=== PATIENT | male | born 1935 | race Caucasian/White ===

== ENCOUNTER 2017-06-12 10:36 | Observation (INO) | payer MEDICARE ==
[~2017-06-12] VITALS: Ht 177.8 cm; Wt 102.5 kg
[~2017-06-12 10:36] MED LIST: CLONIDINE HCL0.2 MG PO; CYMBALTA30 MG PO; HYDROCHLOROTH12.5 MG PO; METOPROLOL TART25 MG PO; OMEGA 3 FISH O1 EACH PO; QUINAPRIL HCL20 MG PO; SPECTRAVITE SE1 EACH PO; SUPER B-COMPL400 MCG PO; TAMSULOSIN HCL0.4 MG PO; TRAZODONE HCL50 MG PO; VITAMIN D1000 UNI1 PO
--- OUTSIDE RECORDS SUMMARY | 2017-06-12 10:39 | XMS REPORT ---
Author Author [facility] Address Unknown Phone Unavailable Care Team Providers Care Internal Control Specialist Name Role Phone ADONIS MURCIA Unavailable Unavailable Problems This patient has no known problems. Allergies, Adverse Reactions, Alerts This patient has no known allergies or adverse reactions. Medications This patient has no known medications. Results Test Description Test Time Test Comments Text Results Atomic Results Result Comments US RENAL RETROPERITONEAL COMP [place] [address] Patient Name: DENIZ RESENDIZ MR #: [id number] : 1935 Age/Sex: 81/M Req #: [id number] Adm Physician: Ordered by: ADONIS MURCIA MD Report #: [id number] Location: Room/Bed: Procedure: [id number] US/US RENAL RETROPERITONEAL COMP Exam Date: 03/08/17 Exam Time: 1440 REPORT STATUS: Signed PROCEDURE : US RETROPERITONEAL ( KIDNEY ). COMPARISON: None. INDICATIONS: Hematuria, Elevated Creatine TECHNIQUE: Gamino-scale and color sonographic images of the bilateral kidneys and bladder where obtained in transverse and longitudinal planes. FINDINGS: RIGHT KIDNEY: 13.3 cm, cortex 1.5 cm Cysts: None. Solid masses: None. Stones: None. Hydronephrosis: None. Echogenicity: Normal. LEFT KIDNEY: 14.8 cm, cortex 2 cm Cysts: 1.4 x 1.1 x 1.2 cm inferior pole cyst. Solid masses: None. Stones: None. Hydronephrosis: None. Echogenicity: Normal. Bladder: Unremarkable. Bilateral ureteral jets detected. Prostate: Within normal limits. CONCLUSION: Unremarkable renal ultrasound. No evidence of nephrolithiasis. Dictated by: Yg Brownlee M.D. on 03/08/2017 at 15 :43 Electronically approved by: Yg Brownlee M.D. on 03/08/2017 at 15: 43 Dictated By: YG BROWNLEE MD 1543 Transcribed By: RAÚL on 03/08/17 1543 COPY TO: ADONIS MURCIA MD
[2017-06-12] MEDS ORDERED: DIATRIZOATE MEGL/DIATRIZOA SOD 30 ML BTL PO ONE (11:44)
[2017-06-12 12:19] LABS: BASOPHILS # (AUTO) 0.1 (0.0-0.1); BASOPHILS % 0.4 % (0.0-1.0); EOSINOPHILS # (AUTO) 0.1 (0.0-0.4); EOSINOPHILS % 0.5 % (0.0-6.0); HEMATOCRIT 48.3 % (38.2-49.6); HEMOGLOBIN 16.9 g/dL (14.0-18.0); LYMPHOCYTES # (AUTO) 2.2 (1.0-3.2); LYMPHOCYTES % 16.3 % (18.0-39.1); MEAN CORPUSCULAR HEMOGLOBIN 31.5 pg (28-32); MEAN CORPUSCULAR VOLUME 89.9 fL (81-99); MONOCYTES % 7.2 % (4.4-11.3); NEUTROPHILS # (AUTO) 10.1 (2.1-6.9); NEUTROPHILS % 73.9 % (38.7-80.0); PLATELET COUNT 325 x10e3/uL (140-360); RED BLOOD COUNT 5.37 x10e6/uL (4.3-5.7); RED CELL DISTRIBUTION WIDTH 13.4 % (11.7-14.4)
[2017-06-12 12:32] LABS: ALBUMIN 3.9 g/dL (3.5-5.0); ALBUMIN/GLOBULIN RATIO 1.1 (0.8-2.0); ANION GAP 16.2 mmol/L (8-16); CALCIUM 9.8 mg/dL (8.4-10.2); POTASSIUM 3.2 mmol/L (3.5-5.1)
[2017-06-12 12:38] LABS: CREATINE KINASE MB 2.6 ng/mL (0-5.0)
--- NOTE | 2017-06-12 13:48 | Diagnostic Imaging Report ---
PROCEDURE: CT ABDOMEN AND PELVIS WITHOUT CONTRAST TECHNIQUE: The abdomen and pelvis were scanned utilizing a multidetector helical scanner from the diaphragm to the lesser trochanter after the oral administration of Gastroview. No intravenous contrast was administered per referring physician request. Coronal and sagittal multiplanar reformations were obtained. COMPARISON: None. INDICATIONS: VOMITING, ABD PAIN FINDINGS: ABSENCE OF INTRAVENOUS CONTRAST DECREASES SENSITIVITY FOR DETECTION OF FOCAL LESIONS AND VASCULAR PATHOLOGY. LOWER THORAX: Multiple calcified pleural plaques along the anterior and diaphragmatic surfaces. Linear and reticular opacities in the bases likely reflect fibrotic changes. Atherosclerotic coronary artery calcifications. HEPATOBILIARY: No focal hepatic lesions. No biliary ductal dilatation. SPLEEN: No splenomegaly. PANCREAS: No focal masses or ductal dilatation. ADRENALS: No adrenal nodules. KIDNEYS/URETERS: Bilateral nonspecific perinephric fat stranding. Simple cyst projecting exophytically from the lower pole of the left kidney, average internal attenuation 5-10 Hounsfield units. No hydronephrosis. No renal, ureteral, or bladder calculi. PELVIC ORGANS/BLADDER: The urinary bladder is incompletely distended but otherwise unremarkable. Probable changes related to TURP. PERITONEUM / RETROPERITONEUM: No ascites. No pneumoperitoneum. LYMPH NODES: No pelvic sidewall, retroperitoneal, or mesenteric lymphadenopathy. VESSELS: Atherosclerotic calcification of the abdominal aorta and branch vessels without aneurysmal dilatation. Otherwise limited evaluation in the absence of intravenous contrast. 2 renal arteries supply each kidney. GI TRACT: The large bowel shows no evidence of distention or wall thickening. The appendix is not definitively identified and may have been removed. There are several mildly dilated loops of small bowel in the upper and mid abdomen, to a maximum caliber of approximately 3.6 cm. No definite transition point is identified, and the distal ileum is decompressed BONES AND SOFT TISSUES: Small fat-containing umbilical hernia. Otherwise no focal soft tissue abnormalities. No osseous destructive lesions. Mild bilateral sacroiliac degenerative changes. Multilevel degenerative disc changes and facet arthropathy of the lumbar spine. IMPRESSION: Multiple mildly dilated loops of small bowel in the upper abdomen likely reflects ileus related to enteritis in the clinical setting of vomiting and abdominal pain. No transition point is identified to suggest high-grade small bowel obstruction. 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 Dictated by: Javy Patten M.D. on 06/12/2017 at 13:47 Electronically approved by: Javy Patten M.D. on 06/12/2017 at 13:47
[2017-06-12] MEDS ORDERED: MORPHINE SULFATE 2 MG/ML SYR IV PRN (15:15)
[2017-06-12] MEDS ORDERED: ONDANSETRON HCL INJ 2 MG/ML VIAL IV PRN (15:15)
[2017-06-12] MEDS: SODIUM CHLORIDE 0.9% 1000ML 1,000 ML IV SCH (16:14)
[2017-06-12 16:30] VITALS: BP 154/74
[2017-06-12 17:02] VITALS: BP 154/74
[2017-06-12 17:05] LABS: CLARITY,URINE CLEAR (CLEAR); COLOR,URINE YELLOW (YELLOW); KETONES,URINE NEGATIVE (NEGATIVE); LEUKOCYTE ESTERASE ,URINE NEGATIVE (NEGATIVE); NITRITE,URINE NEGATIVE (NEGATIVE); PROTEIN,URINE DIPSTICK NEGATIVE (NEGATIVE); URINE UROBILINOGEN 1 mg/dL (0.2 - 1)
[2017-06-12 17:11] LABS: BILIRUBIN,URINE 1+ (NEGATIVE)
[2017-06-12 17:27] LABS: BACTERIA,URINE FEW /HPF; RBC,URINE 0-5 /HPF (0-5); WBC,URINE (MAN) 0-5 /HPF (0-5)
[2017-06-12 17:28] LABS: EPITHELIAL CELLS,URINE FEW /LPF
[2017-06-12] MEDS ORDERED: FENOFIBRATE145 MG PO (17:34)
[2017-06-12] MEDS ORDERED: ACETAMINOPHEN 325 MG TAB PO PRN (17:45)
[2017-06-12] MEDS ORDERED: HYDROCODONE/APAP 5MG-325MG TAB PO PRN (17:45)
[2017-06-12] MEDS ORDERED: HYDRALAZINE HCL 20 MG/ML VIAL IV PRN (18:00)
[2017-06-12 20:00] VITALS: BP 134/66
[2017-06-12 20:42] VITALS: BP 134/66
[2017-06-12 20:44] LABS: CREATINE KINASE MB 2.8 ng/mL (0-5.0)
[2017-06-12] MEDS ORDERED: MELATONIN 5 MG TABLET PO PRN (21:00)
[2017-06-13] VITALS (9 sets, daily range): BP systolic 136–168; BP diastolic 68–80
[2017-06-13] MEDS: SODIUM CHLORIDE 0.9% 1000ML 1,000 ML IV SCH ×4 (01:16→23:48)
[2017-06-13 06:30] LABS: BASOPHILS # (AUTO) 0.1 (0.0-0.1); BASOPHILS % 0.6 % (0.0-1.0); EOSINOPHILS # (AUTO) 0.2 (0.0-0.4); EOSINOPHILS % 1.5 % (0.0-6.0); HEMATOCRIT 41.9 % (38.2-49.6); HEMOGLOBIN 14.3 g/dL (14.0-18.0); LYMPHOCYTES # (AUTO) 2.1 (1.0-3.2); LYMPHOCYTES % 22.1 % (18.0-39.1); MEAN CORPUSCULAR HEMOGLOBIN 31.3 pg (28-32); MEAN CORPUSCULAR HGB CONC 34.1 g/dL (31-35); MEAN CORPUSCULAR VOLUME 91.7 fL (81-99); MONOCYTES # (AUTO) 0.8 (0.2-0.8); MONOCYTES % 8.5 % (4.4-11.3); NEUTROPHILS # (AUTO) 6.3 (2.1-6.9); NEUTROPHILS % 65.3 % (38.7-80.0); PLATELET COUNT 276 x10e3/uL (140-360); RED BLOOD COUNT 4.57 x10e6/uL (4.3-5.7); RED CELL DISTRIBUTION WIDTH 13.5 % (11.7-14.4)
[2017-06-13 06:54] LABS: CREATINE KINASE MB 1.7 ng/mL (0-5.0)
[2017-06-13 06:59] LABS: CALCIUM 8.2 mg/dL (8.4-10.2); CREATININE, SERUM 1.64 mg/dL (0.72-1.25)
[2017-06-13] MEDS ORDERED: POTASSIUM CHLORIDE 20MEQ/100ML 200 ML IV ONE (08:15)
[2017-06-13] MEDS: POTASSIUM CHLORIDE 20MEQ/100ML 100 ML IV SCH ×2 (08:24→10:00)
[2017-06-13] MEDS ORDERED: POTASSIUM CHLORIDE 20 MEQ TAB CR PO NR (15:45)
--- NOTE | 2017-06-13 16:43 | History and Physical ---
CHIEF COMPLAINT: Abdominal pain, nausea, vomiting. HISTORY OF PRESENT ILLNESS: This is an 81-year-old male with a past medical history of hypertension, hyperlipidemia, BPH, who came into the ED for complaints of nausea, vomiting, and abdominal pain. Patient was in the process of having a colonoscopy as an outpatient and was having his bowel prep that the family reports he started on Saturday of this week. Patient reports he had very minimal stool output, and yesterday he was in the process of having his colonoscopy but had significant amount of vomiting with belly pain and came into the ED for further evaluation. Patient reports he had difficulty keeping any food down for the last several hours prior to admission to the ED. Patient denies any chest pain, palpitation, fever, or any other complaints. He reports having some nausea and multiple bouts of vomiting but denies any hematemesis or hemoptysis. Patient denies any fever at home. Patient seen and evaluated at bedside on the medical floor, currently doing well with no other complaints. He reports doing much better and ate his lunch with no other issues. REVIEW OF SYSTEMS PERTINENT POSITIVE: Nausea, vomiting, abdominal pain. PERTINENT NEGATIVE: Denies chest pain, palpitations, dysuria, hematuria, frequency, urgency, lightheadedness, dizziness, headache, shortness of breath, or any other complaints. REST OF 14-POINT REVIEW OF SYSTEMS: Have been reviewed with the patient and are negative. ALLERGIES: TO IBUPROFEN. HOME MEDICATIONS: He takes cholecalciferol, vitamin D3 4000 units p.o. daily, Cymbalta 60 mg daily, metoprolol 25 mg p.o. b.i.d., tamsulosin 0.4 mg at bedtime, trazodone 50 mg at bedtime. PAST MEDICAL HISTORY: BPH, hypertension, vitamin D deficiency, depression. SURGICAL HISTORY: Reports none. FAMILY HISTORY: Hypertension, diabetes. SOCIAL HISTORY: Denies drugs, alcohol, does not smoke. . Good social support. VITAL SIGNS: Temperature is 97.6, pulse 77, respiratory rate is 20, blood pressure is 150/70, and pulse ox 95% on room air. LAB FINDINGS: Show sodium 138, potassium 3, chloride 102, bicarb 26, anion gap of 13, BUN is 30, creatinine is 1.6. On admission creatinine was 2. Glucose 91, calcium 9.2. His LFTs were normal. Troponin negative x3. Albumin is 3.9 and lipase is 39. Urinalysis was negative, showed evidence of hyaline casts consistent with prerenal azotemia. CT abdomen and pelvis: Mildly dilated loops of small bowel in the upper abdomen likely reflects ileus related to enteritis in the clinical setting of vomiting and abdominal pain. There is no evidence of any small-bowel obstruction. PHYSICAL EXAMINATION GENERAL: Not in acute distress. Alert, oriented x3, cooperative on exam. HEENT: Head: Normocephalic, atraumatic. Eyes: Pupils equally round and reactive to light bilaterally. Extraocular movements intact bilaterally. Neck was supple with good range of motion. Throat: No evidence of any erythema or exudates in the posterior pharynx. Has poor dentition. PULMONARY: Clear to auscultation bilaterally. No wheezing, no rales, no rhonchi, no crackles appreciated. CARDIOVASCULAR: Positive S1/S2. No murmurs, rubs or gallops appreciated. ABDOMEN: Soft, nondistended, nontender to palpation. Bowel sounds present. MUSCULOSKELETAL: Strength is 5/5 throughout. No evidence of any musculoskeletal deficit on examination. SKIN: Intact, warm to touch. Good capillary refill. PSYCHIATRIC: Normal affect and mood. EXTREMITIES: No edema. Good range of motion throughout. ASSESSMENT AND PLAN 1. Nausea, vomiting, decreased oral intake, dehydration: Continue with IV fluids, antinausea medication, pain control. This is likely secondary to a viral gastroenteritis and also possibly from GoLYTELY from bowel prep. He is currently doing well with no other issues. CT imaging has been reviewed. His lab findings are stable. 2. Acute kidney injury secondary to vomiting, prerenal azotemia from dehydration: IV fluids, repeat labs in the morning. 3. Hypokalemia: Replace. 4. Hypertension: Stable. Continue same home medication. 5. Benign prostatic hypertrophy: Continue with tamsulosin. 6. Prophylaxis will be Lovenox. 7. Fluid, electrolytes, nutrients: IV fluids and also heart-healthy diet. DISPOSITION: Observation. Will continue to monitor overnight. If stable and tolerating diet, will discharge home. No need for any GI consultation at this time because colonoscopy can be done as an outpatient. Job#: [id number] EV
[2017-06-13] MEDS: METOPROLOL TARTRATE 25 MG TAB PO SCH (17:00)
[2017-06-13] MEDS ORDERED: TRAZODONE HCL 50 MG TAB PO SCH (21:00)
[2017-06-13] MEDS ORDERED: TAMSULOSIN HCL 0.4 MG CAP PO SCH (21:00)
[2017-06-14 00:19] VITALS: BP 168/73
[2017-06-14 04:41] VITALS: BP 153/67
[2017-06-14 07:08] LABS: ANION GAP 11.3 mmol/L (8-16); CALCIUM 8.1 mg/dL (8.4-10.2); CREATININE, SERUM 1.38 mg/dL (0.72-1.25); POTASSIUM 3.3 mmol/L (3.5-5.1)
[2017-06-14 08:00] VITALS: BP 170/74
[2017-06-14] MEDS: METOPROLOL TARTRATE 25 MG TAB PO SCH (08:35)
[2017-06-14] MEDS ORDERED: CHOLECALCIFEROL 1,000 UNIT TAB PO SCH (09:00)
[2017-06-14] MEDS ORDERED: DULOXETINE HCL 30 MG DELAYED RELEASE PO SCH (09:00)
[2017-06-14] MEDS: SODIUM CHLORIDE 0.9% 1000ML 1,000 ML IV SCH (10:57)
[2017-06-14 12:00] VITALS: BP 189/86
[2017-06-14 12:13] VITALS: BP 160/78
[2017-06-14 16:00] VITALS: BP 167/79
--- NOTE | 2017-06-14 18:36 | Discharge Summary ---
DISCHARGE DIAGNOSES 1. Nausea, vomiting and dehydration likely secondary to viral gastroenteritis and also GoLYTELY prep. 2. Decreased oral intake secondary to #1. 3. Acute kidney injury secondary to vomiting, prerenal azotemia from dehydration. 4. Hypokalemia. 5. Hypertension. 6. Benign prostatic hypertrophy. CONSULTANTS: None. VITAL SIGNS: Temperature is 99.2, pulse is 62, respiratory rate 19, blood pressure 160/78. LAB FINDINGS: White count 9.6, hemoglobin 14, hematocrit is 42 and platelets of 276,000. Chemistry: Sodium 135, potassium 3.3, chloride 104, bicarb 23, anion gap of 11, BUN is 20. Creatinine is 1.3. Glucose 117. His LFTs were normal. His troponins were negative. Lipase was 39. Albumin was 3.9. Urinalysis was found to be negative. MICROBIOLOGY: None. IMAGING STUDIES: CT abdomen and pelvis showed multiple mildly dilated loops of small bowel in the upper abdomen, likely represents an ileus related to enteritis with vomiting and abdominal pain. No transition point is identified, high-grade small bowel obstruction. HOSPITAL COURSE: This is an 81-year-old male who came into the ED with complaints of nausea, vomiting, decreased oral intake times 1 day prior to arrival to the ED. Patient was in the process of taking GoLYTELY for GI prep to have a colonoscopy by his GI doctor. Due to underlying dehydration, nausea and vomiting patient was admitted for observation for further evaluation. CT imaging was found to have results as above discussed and described. Patient continued to be on IV fluids, antinausea medication and pain control. Patient improved and started on liquid diet and advanced to a regular diet and tolerated very well. He was found to have an acute kidney injury. Given IV fluids with much improvement in creatinine. Patient was being treated for likely viral gastroenteritis and also possibly from GoLYTELY bowel prep leading to his underlying findings. On discharge, all his symptoms were resolved. He has with no other complaints at this time. He was hypokalemic and given some medications and replaced with supplements. Blood pressure was well managed and controlled. On the day of discharge, vital signs stable, labs reviewed and were stable. The patient was seen and evaluated and examined thoroughly and had no complaints. The patient verbalized understanding of plan of care. He is to follow up accordingly as an outpatient with is primary care physician as well as his GI specialist in the next one week. DISCHARGE MEDICATIONS: See med reconciliation form. DISPOSITION: To home. CONDITION: Stable. DIET: Heart-healthy. FOLLOWUP: Follow up with primary care physician in 1 week as well as your GI specialist for outpatient procedure in 1 week. In the event of any worsening symptoms, the patient was to come back to the ED for further evaluation. TIME FOR DISCHARGE: Greater than 35 minutes. DAMARI FALCON MD Job#: [id number] GH
== END 2017-06-14 17:22 | disposition home or self-care (01) ==
LOC: ER 10:36 → ERHOLD 15:14 → MED/SURG2 16:10
PROVIDERS: ADMIT Internal Medicine; ATTEND Internal Medicine
DX: N17.9 Acute kidney failure, unspecified (principal); E86.0 Dehydration; E87.6 Hypokalemia; K52.9 Noninfective gastroenteritis and colitis, unspecified; I10 Essential (primary) hypertension; E11.9 Type 2 diabetes mellitus without complications; N40.0 Benign prostatic hyperplasia without lower urinary tract symptoms; E55.9 Vitamin D deficiency, unspecified; F32.9 Major depressive disorder, single episode, unspecified
CPT/HCPCS: 36415 ×3; 74176; 80048 ×2; 80053; 81001; 82550 ×2; 82553 ×2; 82948 ×3; 83690; 84484 ×2; 85025 ×2; 93005; 99284; G0378 ×3; J2405; J3480; J7030 ×2; J2270

== ENCOUNTER → 2018-03-28 | Outpatient (CLI) | payer MEDICARE ==
[~2018-03-28] MED LIST changes: +FENOFIBRATE145 MG PO
== END ==
LOC: RAD 13:54
PROVIDERS: ATTEND Urology
DX: R60.9 Edema, unspecified (principal)
CPT/HCPCS: 93970

== ENCOUNTER 2018-07-24 20:10 | Emergency (ER) | payer MEDICARE ==
[~2018-07-24] VITALS: Ht 177.8 cm; Wt 102.5 kg
--- OUTSIDE RECORDS SUMMARY | 2018-07-24 20:14 | XMS REPORT | Summary of Care ---
Author Author [facility] Outpatient Imaging [facility] Outpatient Imaging [facility] Address Unknown Phone Unavailable Encounter HQ Encntr_alias(FIN) [id number] Date(s): 05/01/18 - 05/01/18 [facility] Outpatient Imaging [facility] [address] [facility], [address] [place] [phone] Discharge Disposition: Home or Self Care Attending Physician: Destiny Oswald MD Referring Physician: Destiny Oswald MD Vital Signs No data available for this section Problem List No data available for this section Allergies, Adverse Reactions, Alerts No data available for this section Medications No data available for this section Results No data available for this section Immunizations No data available for this section Procedures No data available for this section Social History No data available for this section Assessment and Plan No data available for this section
--- OUTSIDE RECORDS SUMMARY | 2018-07-24 20:14 | XMS REPORT | Summary of Care ---
Author Author [facility] [place] Organization [facility] [place] Address Unknown Phone Unavailable Encounter HQ Encntr_alias(FIN) [id number] Date(s): 07/01/15 - 07/01/15 [facility] [place] [address] [place] [address] [phone] Discharge Disposition: Home Attending Physician: Anand Pate MD Vital Signs No data available for [...]
--- OUTSIDE RECORDS SUMMARY | 2018-07-24 20:14 | XMS REPORT | Summary of Care ---
Author Author [facility] Outpatient Imaging - [place] Organization [facility] [place] Address Unknown Phone Unavailable Encounter HQ Encntr_alias(FIN) [id number] Date(s): 07/20/16 - 07/20/16 [facility] Outpatient [facility] - [place] [address] [place] [phone] Discharge Disposition: Home or Self Care Attending Physician: Jesus Pate MD Vital Signs No data available [...]
--- OUTSIDE RECORDS SUMMARY | 2018-07-24 20:14 | XMS REPORT | Summary of Care ---
Author Author [facility] Organization [facility] Address Unknown Phone Unavailable Encounter HQ Encntr_alias(FIN) [id number] Date(s): 11/08/17 - 11/08/17 [facility] [address] [place] [address]- Encounter Diagnosis Edema, unspecified (Final) - 11/14/17 Pain in right lower leg (Final) - Pain in right ankle and joints of right foot (Final) - Discharge Disposition: Home or Self Care Attending [...]
--- OUTSIDE RECORDS SUMMARY | 2018-07-24 20:14 | XMS REPORT | Clinical Summary ---
Author Author [facility] Address Unknown Phone Unavailable Care Team Providers Care Deaf Interpreter Name Role Phone Asked, No Pcp PCP Unavailable Allergies Comments Active Allergy Reactions Severity Noted Date Ibuprofen Anaphylaxis High 02/11/2018 Medications End Date Status Medication Sig Dispensed Refills Start Date Active aspirin (ECOTRIN) 81 MG Take 81 mg by 0 enteric coated tablet mouth daily. Active allopurinol (ZYLOPRIM) Take 100 mg 0 100 MG tablet by mouth daily. Active clonIDINE HCl (CATAPRES) Take 0.2 mg 0 0.2 MG tablet by mouth daily. Active clopidogrel (PLAVIX) 75 Take 75 mg by 0 mg tablet mouth daily. Active colchicine 0.6 mg tablet Take 0.6 mg 0 by mouth daily. Active DULoxetine (CYMBALTA) 60 Take 60 mg by 0 MG capsule mouth daily. Active losartan-hydrochlorothiaz Take 1 tablet 0 more (HYZAAR) 100-12.5 mg by mouth per tablet daily. Active metoprolol tartrate Take 25 mg by 0 (LOPRESSOR) 25 mg tablet mouth daily. Active therapeutic multivitamin Take 1 tablet 0 (THERAGRAN) tablet by mouth daily. Active vitamin B comp with C Take 1 tablet 0 no.4 (SUPER B COMPLEX + by mouth. C) 150 mg tablet Active tamsulosin (FLOMAX) 0.4 Take 0.4 mg 0 mg capsule by mouth daily. Active traZODone (DESYREL) 50 MG Take 50 mg by 0 tablet mouth nightly. Active cholecalciferol, vitamin Take 2,000 0 D3, (VITAMIN D3) 2,000 Units by unit capsule capsule mouth daily. Active Problems No known active problems Encounters Care Team Description Date Type Specialty Jj Polanco 02/12/2018 Anesthesia Gastroenterology Event Bryant Morales MD COLONOSCOPY 02/12/2018 Surgery Gastroenterology Bryant Morales MD 02/12/2018 Hospital Gastroenterology Encounter after 07/23/2017 Family History Medical History Relation Name Comments Diabetes Brother Heart disease Brother Uterine cancer Mother Diabetes Sister Relation Name Status Comments Brother Mother Sister Social History Date Tobacco Use Types Packs/Day Years Used Former Smoker Smokeless Tobacco: Never Used Alcohol Use Drinks/Week oz/Week Comments No Alcohol Habits Answer Date Recorded How often do you have a drink containing alcohol? Never 02/11/2018 How many drinks containing alcohol do you have on Not asked a typical day when you are drinking? How often do you have six or more drinks on one Not asked occasion? Sex Assigned at Date Recorded Not on file Industry Job Start Date Occupation Not on file Not on file Not on file Travel End Travel History Travel Start No recent travel history available. Last Filed Vital Signs Time Taken Vital Sign Reading 02/12/2018 1:50 PM ONCOLOGY TECHNICIAN Blood Pressure 108/59 02/12/2018 1:50 PM ONCOLOGY TECHNICIAN Pulse 60 02/12/2018 1:34 PM ONCOLOGY TECHNICIAN Temperature 36.5 C (97.7 F) 02/12/2018 1:50 PM ONCOLOGY TECHNICIAN Respiratory Rate 14 02/12/2018 1:50 PM ONCOLOGY TECHNICIAN Oxygen Saturation 94% - Inhaled Oxygen - Concentration 02/12/2018 12:24 PM ONCOLOGY TECHNICIAN Weight 99.8 kg (220 lb) 02/12/2018 12:24 PM ONCOLOGY TECHNICIAN Height 180.3 cm (5' 11") 02/12/2018 12:24 PM ONCOLOGY TECHNICIAN Body Mass Index 30.68 Plan of Treatment Not on file Procedures Comments Procedure Name Priority Date/Time Associated Diagnosis SURGICAL PATHOLOGY Routine 02/12/2018 REQUEST 1:18 PM ONCOLOGY TECHNICIAN COLONOSCOPY 02/12/2018 SCREENING, HX OF COLON 12:45 PM ONCOLOGY TECHNICIAN POLYPS, OCCULT BLOOD IN STOOL, SLEEP APNEA Z12.11, Z86.010, R19.5, G47.30 ECG 12-LEAD Routine 02/12/2018 12:19 PM ONCOLOGY TECHNICIAN after 07/23/2017 Results * Surgical pathology request (02/12/2018 1:18 PM ONCOLOGY TECHNICIAN) [facility] DEPARTMENT OF PATHOLOGY AND GENOMIC MEDICINE Surgical pathology report See link below for PDF Lab [facility] DEPARTMENT OF Report PATHOLOGY AND GENOMIC MEDICINE Result status This is Final Report for [facility] DEPARTMENT OF [id number] PATHOLOGY AND GENOMIC MEDICINE Performing Organization Address City/State/Zipcode Phone Number [facility] [place] [address] [place] [address] PATHOLOGY AND GENOMIC MEDICINE * ECG 12 lead (02/12/2018 12:19 PM ONCOLOGY TECHNICIAN) Ventricular rate 63 [facility] Atrial rate 63 [facility] NV interval 186 [facility] QRSD interval 128 [facility] QT interval 396 [facility] QTC interval 405 [facility] P axis 1 49 [facility] QRS axis 1 -55 [facility] T wave axis 33 [facility] EKG impression Normal sinus rhythm-Left axis [facility] deviation-Left ventricular hypertrophy with QRS widening-Cannot rule out Septal infarct , age undetermined-Abnormal ECG-No previous ECGs available- Narrative Performed At Performing Organization Address City/State/Zipcode Phone Number [facility] [address] [address] [place] [address] after 07/23/2017 Insurance Payer Benefit Subscriber ID Type Phone Address Plan / Group [employer] C[employer] xxxxxxxx [facility]
--- OUTSIDE RECORDS SUMMARY | 2018-07-24 20:14 | XMS REPORT | Continuity of Care Document ---
Author Author [facility] Interface Address Unknown Phone Unavailable Problems Problem Status Onset Date Classification Date Reported Comments Source Edema, unspecified 11/15/2017 05/28/2018 [facility] DX: EDEMA, RIGHT LEG PAIN, RIGHT ANKLE P Active 11/08/2017 [facility] Pain in right lower leg 05/28/2018 [facility] Pain in right ankle and joints of right foot 05/28/2018 [facility] LOCALIZED EDEMA Active [facility] PAIN IN RIGHT LOWER LEG Active [facility] Medications Medication Details Route Status Patient Instructions Ordering Provider Order Date Source Cholecalciferol (Vitamin D3) (Vitamin D) 1,000 Unit Tablet Daily [facility] Clonidine Hcl 0.2 Mg Tablet Bedtime [facility] Duloxetine Hcl (Cymbalta) 30 Mg Capsule.dr Sears [facility] Fenofibrate Nanocrystallized (Fenofibrate) 145 Mg Tablet Bedtime [facility] Folic Acid/Vitamin B Comp W-C (Super B-Complex Folic-Vit C Tb) 400 Mcg Tablet Daily [facility] Hydrochlorothiazide 12.5 Mg Tablet Twice A Day [facility] Metoprolol Tartrate 25 Mg Tablet Twice A Day [facility] Multivitamin W/Iron, Minerals (Spectravite Senior) 1 Each Tablet Daily [facility] Viking-3 Fatty Acids/Fish Oil (Viking 3 Fish Oil Softgel) 1 Each Capsule.dr Sears [facility] Quinapril Hcl 20 Mg Tablet Twice A Day [facility] Tamsulosin Hcl 0.4 Mg Cap.er.24h Bedtime Active [facility] Trazodone Hcl 50 Mg Tablet Bedtime [facility] Allergies, Adverse Reactions, Alerts Substance Category Reaction Severity Reaction type Status Date Reported Comments Source Ibuprofen THROAT SWELLS Mild Allergy to Substance Active 07/27/2016 [facility] Immunizations Immunization Date Given Site Status Last Updated Comments Source Results Order Name Results Value Reference Range Date Interpretation Comments Source Chest 2 views DX Chest 2 views DX EXAM: XR CHEST 2 VIEWS DATE: 05/01/2018 13:41 [employer] 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 Lungs and pleura: Stable appearance of bilateral extensive calcified pleural plaques, may suggest changes of underlying asbestosis-related disease or other pneumoconiosis. Pulmonary vascularity is normal. Heart and mediastinum: The heart size is normal for technique. The mediastinal contours are normal. Bones: No acute bony abnormality is identified. IMPRESSION: 1. Stable appearance of bilateral extensive calcified pleural plaques. 05/01/2018 - - Read by: Adolfo Fagan MD Dictated Date/time: 05/01/18 14:05 Electronically Signed by: Adolfo Fagan 05/01/18 14:07 FINAL REPORT [facility] Ankle 3 views DX Ankle 3 views DX Exam: Right Ankle 3 views DX Clinical Indication: - Right leg and ankle pain with edema. Comparison: None. FINDINGS: The AP, oblique and lateral views of the right ankle show normal alignment without fractures or dislocations. The tibiotalar joint and talar dome are unremarkable. The subtalar joint is unremarkable. There is no ankle joint effusion. The mortise is normal. The distal tibia-fibular alignment is unremarkable. There is no soft tissue swelling or radiopaque foreign bodies. If there is further concern, recommend follow-up radiographs or MRI for complete assessment. IMPRESSION: 1. No fractures or dislocation of the right ankle. SL: [id number] 11/08/2017 - - Read by: Marci Greene DO Dictated Date/time: 11/08/17 17:17 Electronically Signed by: Marci Greene DO 11/08/17 17:18 FINAL REPORT [facility] Ext Lower Venous Doppler Unilat US Ext Lower Venous Doppler Unilat US Patient Name: DENIZ RESENDIZ : 1935 Age: 82 years, Male MR: [id number] Study: Ext Lower Venous Doppler Unilat US 11/08/2017 4:08 PM CDT Examination: Lower extremity venous duplex ultrasound, right Indication: Right ankle pain. Clinical information: - PAIN Comparison: None Technique: Grayscale, color Doppler, and spectral waveform analysis of the unilateral lower extremity venous system were performed. Findings: Right: Common femoral vein: Complete compression with normal spontaneous waveforms. Proximal greater saphenous vein: Complete compression. Femoral vein: Complete compression with normal spontaneous waveforms. Popliteal vein: Complete compression with normal spontaneous waveforms. Posterior tibial vein: Complete compression with normal spontaneous waveforms. Edema is noted in the right ankle. Greater saphenous vein is not compressible in the calf and ankle. Incidental note is made of a right inguinal lymph node measuring 3.1 x 0.6 x 2.1 cm. IMPRESSION: No evidence of deep venous thrombosis of the right lower extremity venous system. Noncompressible greater saphenous vein at the calf and ankle may represent nonocclusive thrombus in the superficial vein. The findings were discussed with Shelby Randle, the nurse practitioner in care of the patient, at 1710 hours on 11/08/2017. SL: [id number] 11/08/2017 - - Read by: Ole Morrison MD Dictated Date/time: 11/08/17 16:53 Electronically Signed by: Ole Morrison MD 11/08/17 17:17 FINAL REPORT [facility] Capillary blood glucose measurement by glucometer (mass/volume) Capillary blood glucose measurement by glucometer (mass/volume) 119 70 - 120 06/14/2017 [facility] Estimated glomerular filtration rate (GFR) determination Estimated glomerular filtration rate (GFR) determination 49 60 06/14/2017 [facility] Glucose measurement Glucose measurement 117 74 - 118 06/14/2017 [facility] Serum or plasma anion gap Serum or plasma anion gap 11.3 8 - 16 06/14/2017 [facility] Serum or plasma calcium measurement (mass/volume) Serum or plasma calcium measurement (mass/volume) 8.1 8.4 - 10.2 06/14/2017 [facility] Serum or plasma carbon dioxide, total measurement (moles/volume) Serum or plasma carbon dioxide, total measurement (moles/volume) 23 22 - 29 06/14/2017 [facility] Serum or plasma chloride measurement (moles/volume) Serum or plasma chloride measurement (moles/volume) 104 98 - 107 06/14/2017 [facility] Serum or plasma creatinine measurement (mass/volume) Serum or plasma creatinine measurement (mass/volume) 1.38 0.72 - 1.25 06/14/2017 [facility] Serum or plasma potassium measurement (moles/volume) Serum or plasma potassium measurement (moles/volume) 3.3 3.5 - 5.1 06/14/2017 [facility] Serum or plasma sodium measurement (moles/volume) Serum or plasma sodium measurement (moles/volume) 135 136 - 145 06/14/2017 [facility] Serum or plasma urea nitrogen measurement (mass/volume) Serum or plasma urea nitrogen measurement (mass/volume) 20 7 - 26 06/14/2017 [facility] Serum or plasma urea nitrogen/creatinine mass ratio Serum or plasma urea nitrogen/creatinine mass ratio 14 6 - 25 06/14/2017 [facility] Automated blood basophil count (count/volume) Automated blood basophil count (count/volume) 0.1 0.0 - 0.1 06/13/2017 [facility] Automated blood basophil count as percentage of total leukocytes Automated blood basophil count as percentage of total leukocytes 0.6 0.0 - 1.0 06/13/2017 [facility] Automated blood eosinophil count Automated blood eosinophil count 0.2 0.0 - 0.4 06/13/2017 [facility] Automated blood eosinophil count as percentage of total leukocytes Automated blood eosinophil count as percentage of total leukocytes 1.5 0.0 - 6.0 06/13/2017 [facility] Automated blood hematocrit (volume fraction) Automated blood hematocrit (volume fraction) 41.9 38.2 - 49.6 06/13/2017 [facility] Automated blood lymphocyte count as percentage ot total leukocytes Automated blood lymphocyte count as percentage ot total leukocytes 22.1 18.0 - 39.1 06/13/2017 [facility] Automated blood monocyte count as percentage of total leukocytes Automated blood monocyte count as percentage of total leukocytes 8.5 4.4 - 11.3 06/13/2017 [facility] Automated blood neutrophil count Automated blood neutrophil count 6.3 2.1 - 6.9 06/13/2017 [facility] Automated blood platelet count (count/volume) Automated blood platelet count (count/volume) 276 140 - 360 06/13/2017 [facility] Automated blood segmented neutrophil count as percentage of total leukocytes Automated blood segmented neutrophil count as percentage of total leukocytes 65.3 38.7 - 80.0 06/13/2017 [facility] Automated erythrocyte mean corpuscular hemoglobin (mass per erythrocyte) Automated erythrocyte mean corpuscular hemoglobin (mass per erythrocyte) 31.3 28 - 32 06/13/2017 [facility] Automated erythrocyte mean corpuscular hemoglobin concentration measurement (mass/volume) Automated erythrocyte mean corpuscular hemoglobin concentration measurement (mass/volume) 34.1 31 - 35 06/13/2017 [facility] Automated erythrocyte mean corpuscular volume Automated erythrocyte mean corpuscular volume 91.7 81 - 99 06/13/2017 [facility] Blood erythrocytes automated count (number/volume) Blood erythrocytes automated count (number/volume) 4.57 4.3 - 5.7 06/13/2017 [facility] Blood hemoglobin measurement (moles/volume) Blood hemoglobin measurement (moles/volume) 14.3 14.0 - 18.0 06/13/2017 [facility] Blood leukocytes automated count (number/volume) Blood leukocytes automated count (number/volume) 9.68 4.8 - 10.8 06/13/2017 [facility] Blood lymphocytes count (number/volume) Blood lymphocytes count (number/volume) 2.1 1.0 - 3.2 06/13/2017 [facility] Blood monocytes automated count (number/volume) Blood monocytes automated count (number/volume) 0.8 0.2 - 0.8 06/13/2017 [facility] Serum or plasma creatine kinase MB measurement (mass/volume) Serum or plasma creatine kinase MB measurement (mass/volume) 1.70 0 - 5.0 06/13/2017 [facility] Serum or plasma creatine kinase measurement (enzymatic activity/volume) Serum or plasma creatine kinase measurement (enzymatic activity/volume) 98 30 - 200 06/13/2017 [facility] Troponin I measurement by highly sensitive enzyme immunoassay Troponin I measurement by highly sensitive enzyme immunoassay 0.023 0 - 0.300 06/13/2017 [facility] Red Cell Distribution Width 13.5 11.7 - 14.4 06/13/2017 [facility] IM GRANULOCYTES % 2.0 0.0 - 1.0 06/13/2017 [facility] Absolute Immature Granulocyte (auto 0.19 0 - 0.1 06/13/2017 [facility] Automated urine sediment leukocyte count by microscopy (number/high power field) Automated urine sediment leukocyte count by microscopy (number/high power field) null 0 - 5 06/12/2017 [facility] Bacteria detection in urine sediment by light microscopy Bacteria detection in urine sediment by light microscopy FEW NONE 06/12/2017 [facility] Epithelial cells detection in urine sediment by light microscopy Epithelial cells detection in urine sediment by light microscopy FEW NONE 06/12/2017 [facility] Erythrocytes detection in urine sediment by light microscopy Erythrocytes detection in urine sediment by light microscopy null 0 - 5 06/12/2017 [facility] Hyaline casts detection in urine sediment by light microscopy Hyaline casts detection in urine sediment by light microscopy null 0 - 1 06/12/2017 [facility] Specific gravity of Urine by Test strip Specific gravity of Urine by Test strip 1.025 1.010 - 1.025 06/12/2017 [facility] Urine clarity Urine clarity CLEAR CLEAR 06/12/2017 [facility] Urine color determination Urine color determination YELLOW YELLOW 06/12/2017 [facility] Urine erythrocytes detection Urine erythrocytes detection NEGATIVE NEGATIVE 06/12/2017 [facility] Urine glucose detection Urine glucose detection NEGATIVE NEGATIVE 06/12/2017 [facility] Urine ketones detection by automated test strip Urine ketones detection by automated test strip NEGATIVE NEGATIVE 06/12/2017 [facility] Urine leukocyte esterase detection by dipstick Urine leukocyte esterase detection by dipstick NEGATIVE NEGATIVE 06/12/2017 [facility] Urine nitrite detection Urine nitrite detection NEGATIVE NEGATIVE 06/12/2017 [facility] Urine pH measurement by automated test strip Urine pH measurement by automated test strip 5 5 - 7 06/12/2017 [facility] Urine protein measurement by test strip (mass/volume) Urine protein measurement by test strip (mass/volume) NEGATIVE NEGATIVE 06/12/2017 [facility] Urine total bilirubin measurement (mass/volume) Urine total bilirubin measurement (mass/volume) 1+ NEGATIVE 06/12/2017 [facility] Urine urobilinogen measurement by test strip (mass/volume) Urine urobilinogen measurement by test strip (mass/volume) 1 0.2 - 1 06/12/2017 [facility] Plasma globulin measurement (mass/volume) Plasma globulin measurement (mass/volume) 3.6 2.3 - 3.5 06/12/2017 [facility] Serum or plasma alanine aminotransferase measurement (enzymatic activity/volume) Serum or plasma alanine aminotransferase measurement (enzymatic activity/volume) 15 0 - 55 06/12/2017 [facility] Serum or plasma albumin measurement (mass/volume) Serum or plasma albumin measurement (mass/volume) 3.9 3.5 - 5.0 06/12/2017 [facility] Serum or plasma albumin/globulin mass ratio Serum or plasma albumin/globulin mass ratio 1.1 0.8 - 2.0 06/12/2017 [facility] Serum or plasma alkaline phosphatase measurement (enzymatic activity/volume) Serum or plasma alkaline phosphatase measurement (enzymatic activity/volume) 32 40 - 150 06/12/2017 [facility] Serum or plasma lipase measurement (enzymatic activity/volume) Serum or plasma lipase measurement (enzymatic activity/volume) 39 8 - 78 06/12/2017 [facility] Serum or plasma protein measurement (mass/volume) Serum or plasma protein measurement (mass/volume) 7.5 6.5 - 8.1 06/12/2017 [facility] Serum or plasma total bilirubin measurement (mass/volume) Serum or plasma total bilirubin measurement (mass/volume) 1.3 0.2 - 1.2 06/12/2017 [facility] Aspartate Amino Transf (AST/SGOT) 18 5 - 34 06/12/2017 [facility] Hip bilat w pelvis and both lat hips DX Hip bilat w pelvis and both lat hips DX Exam: Pelvis x-ray, one view and bilateral hip x-rays 2 views each Reason for Exam: [id number] Pain in right hip Comparison Exam: None Discussion: No fractures or dislocations are seen within the pelvis or hips. SI joints and pubic symphysis are unremarkable. 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 No evidence for avascular necrosis within the femoral heads. No suspicious osteoblastic or osteolytic lesions. No dilated loops of bowel within the visualized portions of the pelvis. Impression: 1. No acute bony abnormalities identified. 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 There is no evidence of pneumonia, effusion or pneumothorax. The cardiac silhouette is upper normal. Mild discogenic degenerative changes are noted. IMPRESSION: No significant change. 07/20/2016 - - Read by: Yessica Dahl MD Dictated Date/time: 07/20/16 15:16 Electronically Signed by: Yessica Dahl MD 07/20/16 15:17 FINAL REPORT [facility] [place] Retroperitoneal Complete US Retroperitoneal Complete US EXAM: Retroperitoneal Complete US HISTORY: R94.4 Abnormal results of kidney function studies COMPARISON: None FINDINGS: Renal parenchymal echogenicity is increased bilaterally, in keeping with medical renal disease. Right kidney: Length and cortical thickness are 13.1 and 1.3 cm, respectively. No hydronephrosis, suspicious mass, or large shadowing calculus. There is a superior pole cyst on the right which measures up to 1 cm. Left Kidney: Length and cortical thickness are 14.3 and 1.3 cm, respectively. No hydronephrosis, suspicious mass, or large shadowing calculus. There is an inferior pole cyst on the left which measures up to 1.3 cm. Bladder: No wall thickening, mural nodularity, or suspicious intraluminal echoes are identified. Both ureteral jets are patent. The prostate measures 2.7 x 2.5 x 3.4 cm. Vascular: Visualized portions of the IVC are patent. There is no obvious aneurysmal dilatation of the aorta. The origins of the common iliac arteries are not seen sonographically. IMPRESSION: Renal parenchymal echogenicity is increased bilaterally, in keeping with medical renal disease. 07/20/2016 - - Read by: Yessica Dahl MD Dictated Date/time: 07/20/16 16:34 Electronically Signed by: Yessica Dahl MD 07/20/16 16:38 FINAL REPORT [facility] Chest 2 views DX Chest 2 views DX Exam: Chest x-ray, 2 views Reason for Exam: asbestosis Comparison Exam: None Discussion: Cardiac silhouette is within normal limits for size. No pulmonary edema or pleural effusions. Multiple ill-defined calcified densities are seen overlying the right and left hemithoraces, likely representing pleural calcifications. Consider short-term follow-up chest CT without contrast for further characterization. Mild multilevel degenerative disc disease seen within the thoracic spine. Impression: 1. Multiple ill-defined calcified densities are seen overlying the right and left hemithoraces, likely representing pleural calcifications. Consider short-term follow-up chest CT without contrast for further characterization 07/01/2015 - - Read by: Freddie Huynh MD Dictated Date/time: 07/01/15 14:28 Electronically Signed by: Freddie Huynh MD 07/01/15 14:29 FINAL REPORT [facility] Vital Signs Vital Sign Value Date Comments Source Encounters Location Location Details Encounter Type Encounter Number Reason For Visit Attending Provider ADM Date DC Date Status Source [facility] [place] [facility] [id number] Anand Pate 07/01/2015 07/02/2015 [facility] Ho [facility] [place] [facility] [id number] Jesus Pate 07/20/2016 07/21/2016 [facility] [place] [facility] [place] [facility] [id number] Jesus Pate 07/26/2016 07/27/2016 [facility] [id number] ADONIS MURCIA MD 03/08/2017 [facility] Discharged Inpatient (obs) [id number] DAMARI FALCON MD 06/12/2017 06/14/2017 [facility] Out[facility] [id number] Jesus Pate 11/08/2017 11/09/2017 [facility] [place] [facility] [id number] Detsiny Oswald 05/01/2018 05/02/2018 [facility] [place] Procedures Procedure Code Date Perfomer Comments Source CT of abdomen and pelvis without contrast [id number] 06/12/2017 [facility] Ultrasound, renal [id number] 03/08/2017 [facility]
--- OUTSIDE RECORDS SUMMARY | 2018-07-24 20:14 | XMS REPORT | Summary of Care ---
Author Author [facility] [place] Organization [facility] [place] Address Unknown Phone Unavailable Encounter HQ Encntr_alias(FIN) [id number] Date(s): 07/26/16 - 07/26/16 [facility] [place] [address] [place] [phone] Discharge Disposition: Home or Self Care Attending [...]
--- NOTE | 2018-07-24 22:16 | Diagnostic Imaging Report ---
ADDENDUM #1 Additional history: Report of struck back of head on cement and patient 'tripped and fell back" per daughter. Signed by: Dr. Marisel Patton M.D. on 07/30/2018 2:03 AM ORIGINAL REPORT EXAMINATION: Head CT without contrast. HISTORY:Status post fall. COMPARISON:CT brain from 07/27/2016. TECHNIQUE: Multidetector axial images were obtained from the foramen magnum to the vertex without contrast. The images were reconstructed using brain and bone algorithms. Thin section brain images were reformatted into coronal and sagittal planes. Dose modulation, iterative reconstruction, and/or weight based adjustment of the mA/kV was utilized to reduce the radiation dose to as low as reasonably achievable. Intravenous contrast: None IMAGE QUALITY: Acceptable. FINDINGS: Skull/scalp: Unchanged nonspecific subcutaneous soft tissue thickening in left occipital scalp may represent scar. Parenchyma: No unchanged nonspecific bilateral frontoparietal patchy white matter hypodensity are likely related to small vessel ischemic changes. No acute hemorrhage, mass or acute major vascular territorial infarct. Arteries: No density suggestive of thrombosis. Atherosclerotic calcification in bilateral carotid siphon. Dural sinuses: No abnormal density suggestive of thrombosis. Ventricles: Unchanged marked ventriculomegaly slightly disproportionate to the amount of cerebral volume loss. Extra-axial spaces: No abnormal density. Brain volume: Moderate generalized volume loss, with predominant involvement of bilateral temporal lobes with markedly dilated bilateral sylvian fissures remains unchanged. Craniocervical junction: No mass, Chiari malformation, or basilar invagination. Sella: No mass. Paranasal/mastoid sinuses: Imaged portions unremarkable. IMPRESSION: No acute intracranial abnormality. No change since CT brain from 07/27/2016. Chronic findings: 1. Mild supratentorial white matter microvascular ischemic changes. 2. Moderate generalized cerebral volume loss, with mild predominant involvement of bilateral temporal lobes. 3. Marked ventriculomegaly slightly disproportionate to the amount of cerebral volume loss may represent normal pressure hydrocephalus or due to central cerebral volume loss in appropriate clinical setting. Signed by: Dr. Marisel Patton M.D. on 07/24/2018 10:13 PM
--- NOTE | 2018-07-24 22:22 | Diagnostic Imaging Report ---
ADDENDUM #1 Additional history: Report of struck back of head on cement and patient 'tripped and fell back" per daughter. Signed by: Dr. Marisel Patton M.D. on 07/30/2018 2:04 AM ORIGINAL REPORT History: Status post fall. Comparison studies: CT cervical spine from 12/20/2015. Technique: Axial images were obtained through the cervical region.. Coronal and sagittal images reconstructed from the axial data. Dose modulation, iterative reconstruction, and/or weight based adjustment of the mA/kV was utilized to reduce the radiation dose to as low as reasonably achievable. Intravenous contrast: None Findings: Fractures: None. Soft tissue injuries: None. Atlantoaxial articulation: Intact. Alignment: Reversal of normal cervical lordosis is either positional or due to muscle spasm. No scoliosis. 1.5 mm grade 1 anterolisthesis at C4-C5 and 2 mm grade 1 retrolisthesis at C5-C6, is likely degenerative. Cervicomedullary junction: No abnormalities. The foramen magnum is patent. Soft tissues: Hypodense nodules in bilateral lobes of thyroid gland, approximately measures 1.6 cm in long axis on the right and 1.5 mm in the left lobe. Vertebrae: No fractures, infection or neoplasm. Degenerative changes: C2-C3: Mild right foraminal stenosis due to advanced right facet arthrosis. C3-C4: Mild degenerative disc disease. Posterior disc osteophyte complex results in mild canal stenosis. Severe right and mild left foraminal stenosis due to facet and uncovertebral arthrosis. C4-C5: Moderate right and mild left foraminal stenosis due to facet and uncovertebral arthrosis. C5-C6: Severe degenerative disc disease. Posterior disc osteophyte complex results in mild to moderate canal stenosis. Moderate right and severe left foraminal stenosis due to facet and uncovertebral arthrosis. C6-C7: Moderate degenerative disc disease. Posterior disc osteophyte complex results in mild canal stenosis. Moderate bilateral foraminal stenosis due to facet and uncovertebral arthrosis. IMPRESSION: 1. No acute cervical spine fracture or dislocation. Reversal of normal cervical lordosis is either positional or due to muscle spasm. 2. Ligament, spinal cord and or vascular abnormalities cannot be excluded on the basis of this examination. 3. Cervical spondylosis as detailed above. Signed by: Dr. Marisel Patton M.D. on 07/24/2018 10:19 PM
[2018-07-24 22:30] VITALS: BP 149/83
== END 2018-07-24 23:00 | disposition home or self-care (01) ==
LOC: ER 20:10
DX: S06.0X0A Concussion without loss of consciousness, initial encounter (principal); S00.03XA Contusion of scalp, initial encounter; S00.01XA Abrasion of scalp, initial encounter; W01.0XXA Fall on same level from slipping, tripping and stumbling without subsequent striking against object, initial encounter; Y92.22 Religious institution as the place of occurrence of the external cause; I10 Essential (primary) hypertension; E78.00 Pure hypercholesterolemia, unspecified; Z85.46 Personal history of malignant neoplasm of prostate; Z85.828 Personal history of other malignant neoplasm of skin
CPT/HCPCS: 70450; 72125; 99283

== ENCOUNTER → 2019-09-10 | Outpatient (CLI) | payer MEDICARE ==
[~2019-09-10] MED LIST changes: +REGADENOSON 0.4 MG/5 ML SYR IV ONE
== END ==
LOC: NM 09:49
PROVIDERS: ATTEND Internal Medicine Interventional Cardiology
DX: I20.8 Other forms of angina pectoris (principal)
CPT/HCPCS: 78452; 93017; A9502

== ENCOUNTER 2019-11-02 10:49 | Inpatient (IN) | payer MEDICARE, OTHER ==
[~2019-11-02] VITALS: Ht 180.3 cm; Wt 95.3 kg
[~2019-11-02 10:49] MED LIST changes: -REGADENOSON 0.4 MG/5 ML SYR IV ONE
--- OUTSIDE RECORDS SUMMARY | 2019-11-02 11:11 | XMS REPORT | Continuity of Care Document ---
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 Ben[facility] essential hypertension (disorder) Active Problem 09/13/2019 [facility] OPI D [place] Atherosclerosis of coronary artery (disorder) Active Problem 09/13/2019 [facility] OPI D [place] History of malignant neoplasm of prostate (situation) [facility] [place] Hyperlipidemia (disorder) Acti ve Problem [facility] OPID [place] d Peripheral nerve disease (disorder) [facility] Medications No Data Provided for This Section Allergies, Adverse Reactions, Alerts Substance Category Reaction Severity Reaction type Status Date Reported Comments Source Motrin Assertion Drug allergy Active [facility] Immunizations No Data Provided for This Section Results No Data Provided for This Section Pathology Reports No Data Provided for This Section Diagnostic Reports Report Value Date Source Chest 2 views DX PROCEDURE INF ORMATION: Exam: XR Chest, 2 Views Exam date and time: 09/11/2019 12:32 PM Age: 84 years old Clinical indication: Other chest pain; Additional info: /r07.89 other chest pain TECHNIQUE: Imaging protocol: XR of the chest Views: 2 views. PA and Lateral COMPARISON: CHEST 1VIEW DX 05/29/2019 12:32 AM FINDINGS: Lungs: No new gross consolidation. Pleural space: Persistent extensive bilateral pleural calcifications are present. No significant pleural effusion. No significant pneumothorax. Heart/Mediastinum: The heart size is stable. Tortuous atherosclerotic thoracic aorta. The pulmonary vasculature is normal. The mediastinal contour is normal. The trachea is midline. Bones/joints: No acute abnormality seen. IMPRESSION: No acute cardiopulmonary process detected. Persistent extensive bilateral pleural calcifications are present. Yung Monet MD On 09/11/2019 13:55:02; [id number] 09/11/2019 [facility] [place] Humerus 2 views DX PROCEDURE I NFORMATION: Exam: XR Right Humerus Exam date and time: 08/20/2019 1:58 PM Age: 83 years old Clinical indication: Pain in right shoulder; Additional info: /m25.511 TECHNIQUE: Imaging protocol: XR Right humerus Views: 2 or more views. AP and Lateral COMPARISON: No relevant prior studies available. * RIGHT HUMERUS, 2 views Technique: Frontal and lateral radiographs of the right humerus were obtained. FINDINGS: There is no evidence of fracture, dislocation, or acute change. There are no destructive lesions or other osseous abnormalities. IMPRESSION: 1. Negative right humerus. Rogelio Carrero MD On 08/20/2019 15:24:54; [id number] 08/20/2019 [facility] Shoulder series DX PROCEDURE I NFORMATION: Exam: XR Right Shoulder Exam date and time: 08/20/2019 1:58 PM Age: 83 years old Clinical indication: Pain in right shoulder; Additional info: /m25.511 TECHNIQUE: Imaging protocol: XR Right shoulder. Views: 2 or more views. AP INT/ EXT ROTATION, SCAPULAR Y COMPARISON: No relevant prior studies available. FINDINGS: Bones/joints: There is normal alignment at the glenohumeral joint. There are no acute fractures or dislocations. Degenerative changes versus chronic chip/avulsion fracture fragment seen in the right acromioclavicular joint. The acromioclavicular joint and coracoclavicular spaces are intact. The visualized scapula and clavicle are unremarkable. Soft tissues: There are no radiopaque foreign bodies. Nonspecific calcific radiopaque densities projecting over the visualized right hemithorax. And embedded 1.2 cm nodular densities also seen projecting over the right mid lung region. Notes: If there is further concern, follow-up radiographs or MRI of the shoulder may be performed for complete assessment. IMPRESSION: 1. No radiographic evidence of fracture or dislocation in the right shoulder. 2. Degenerative changes versus chronic c hip/avulsion injury in the right acromioclavicular joint. 3. Nonspecific calcific radiopaque densi ties projecting over the right hemithorax, which may be related to the costochondral junctions of the right ribs or represent intrapulmonary structures. Embedded 1.2 cm nodular density also seen projecting over the right mid lung region. Consider follow-up with dedicated 2-view chest radiograph for better characterization of these findings. Lloyd Best DO On 08/20/2019 17:39:16; [id number] 08/20/2019 [facility] Consultation Notes No Data Provided for This Section Discharge Summaries No Data Provided for This Section History and Physicals No Data Provided for This Section Vital Signs No Data Provided for This Section Encounters Location Location Details Encounter Type Encounter Number Reason For Visit Attending Provider ADM Date DC Date Status Source [facility] Outpatient [id number] Yoana Rivera 08/1908/21/2019 [facility] [place] [facility] [id number] Souaurora Oswald 09/11/2019 09/12/2019 [facility] Procedures Procedure Code Date Perfomer Comments Source Bilateral vasectomy [id number] [facility] Cataract surgery [id number] [facility] Assessment and Plan No Data Provided for This Section Plan of Care No Data Provided for This Section Social History Social History Date Source Social History TypeResponse Alcohol Never Smoking Status Former smoker; Type: Cigarettes; Previous treatment: None; Ready to change: No; Concerns about tobacco use in household: No; Exposure to Tobacco Smoke None; Cigarette Smoking Last 365 Days No; Reg Smoking Cessation Counseling No entered on: 05/29/19 05/29/2019 [facility] Social History TypeResponse Alcohol Never Smoking Status Former smoker; Type: Cigarettes; Previous treatment: None; Ready to change: No; Concerns about tobacco use in household: No; Exposure to Tobacco Smoke None; Cigarette Smoking Last 365 Days No; Reg Smoking Cessation Counseling No entered on: 05/29/19 05/29/2019 [facility] Family History No Data Provided for This Section Advance Directives No Data Provided for This Section Functional Status No Data Provided for This Section
--- OUTSIDE RECORDS SUMMARY | 2019-11-02 11:11 | XMS REPORT | Continuity of Care Document ---
Author Author [facility] t Organization [facility] Address [address] [place] [address] Phone Unavailable Care Team Providers Care Sharebroker Name Role Phone ALEJANDRO OSWALD MD PCP Antonette Oswald Attphys KATHE TARIQ Attphys Unavailable Yoana Rivera Attphys Brett HAMILTON Attphys Unavailable MANEEVESE, Mirna ROSS Attphys Unavailable HAMPEL, ADONIS Attphys Unavailable Payers Payer Name Policy Type Policy Number Effective Date Expiration Date Warren Sandoval [facility] [id number] 2017 [facility] Condition Name Condition Details Condition Category Status Onset Date Resolution Date Last Treatment Date Treating Clinician Comments Source R07.89 - OTHER CHEST PAIN R07. 89 - OTHER CHEST PAIN Active 09/04/2019 [facility] Diagnosis Active 2019-09-04 00:01:00 2019-09-11 11:37:00 Gladys Dooley M25.511 M25. 511 Active 08/20/2019 [facility] Diagnosis Active 2019-08-20 00:00:00 2019-08-20 13:28:00 Gladys Dooley Escherichia coli (organism) Es cherichia coli (organism) Active 05/29/2019 Problem 09/13/2019 urine (ESBL+), 05/29/2019Problem added by Discern Expert. [facility] JAS[facility]IR [place] Problem Active 2019-05-29 00:00:00 2019-09-13 22:44:02 Gladys Dooley Benign essential hypertension (disorder) Benign essential hypertension (disorder) Active Problem 09/13/2019 [facility] [place] [place] Problem Active 2019-09-13 22:44:02 Mayank Dooley Atherosclerosis of coronary artery (disorder) Atherosclerosis of coronary artery (disorder) Active Problem 09/13/2019 [facility] [place] [place] Problem Active 2019-09-13 22:44:02 [facility] History of malignant neoplasm of prostate (situation) History of malignant neoplasm of prostate (situation) Active Problem 09/13/2019 [facility] JASVIR [place] Problem Active 2019-09-13 22: 44:02 [facility] Hyperlipidemia (disorder) Hype rlipidemia (disorder) Active Problem 09/13/2019 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 JASVIR [place] Problem Active 2019-09-13 22:44:02 [facility] Allergies, Adverse Reactions, Alerts Allergy Name Allergy Type Status Severity Reaction(s) Onset Date Inacti ve Date Treating Clinician Comments Source Ibuprofen Propensity to adverse reactions to drug Active Anaphylaxis 2018-02-11 00:00:00 [place] [facility] Motrin Motrin Active [facility] Family History Family Member Diagnosis Comments Start Date Stop Date Source Natural brother Diabetes [place] [facility] ethod[facility] Natural brother Heart disease [place] [facility] Natural mother Uterine cancer [place] Natural sister Diabetes [place] [facility] thodist Social History Social Habit Start Date Stop Date Quantity Comments Source History SDOH Alcohol Std Drinks [place] [facility] History SDOH Alcohol Binge [place] [facility] Sex Assigned [place] [facility] Social History 2019-05-29 11:17:14 2019-05-29 11:17:14 [facility] Alcohol intake 2018-02-13 00:00:00 2018-02-13 00:00:00 Current non-drinker of alcohol (finding) [place] [facility] History SDOH Alcohol Frequency 2018-02-11 00:00:00 2018-02-11 00:00:0 0 1 [place] [facility] Smoking Status Start Date Stop Date Source Former smoker 2018-02-13 00:00:00 2018-02-13 00:00:00 [place] [facility] Medications Ordered Medication Name Filled Medication Name Start Date Stop Da te Current Medication? Ordering Clinician Indication Dosage Frequency Signature (SIG) Comments Components Source aspirin (ECOTRIN) 81 MG enteric coated tablet 2019-06-19 14:01:3 2 Yes 81mg QD Take 81 mg by mouth daily. H ross Diamond allopurinol (ZYLOPRIM) 100 MG tablet 2019-06-19 14:01:32 Ye s 100mg QD Take 100 mg by mouth daily. Jose Elias [place] clonIDINE HCl (CATAPRES) 0.2 MG tablet 2019-06-19 14:01:32 Yes .2mg Take 0.2 mg by mouth daily. Jose Elias [place] clopidogrel (PLAVIX) 75 mg tablet 2019-06-19 14:01:32 Yes 75mg QD Take 75 mg by mouth daily. Jose Elias [place] colchicine 0.6 mg tablet 2019-06-19 14:01:32 Yes .6mg QD Take 0.6 mg by mouth daily. Jose Elias [place] DULoxetine (CYMBALTA) 60 MG capsule 2019-06-19 14:01:32 Yes 60mg QD Take 60 mg by mouth daily. Jose Elias Diamond losartan-hydrochlorothiazide (HYZAAR) 100-12.5 mg per tablet 2019-06-19 14:01:32 Yes 1{tbl} QD Take 1 tablet by mouth daily. Jose Elias Diamond metoprolol tartrate (LOPRESSOR) 25 mg tablet 2019-06-19 14:01:32 Yes 25mg Take 25 mg by mouth daily. Hina Diamond therapeutic multivitamin (THERAGRAN) tablet 2019-06-19 14:01:32 Yes 1{tbl} QD Take 1 tablet by mouth daily. Jose Elias Diamond vitamin B comp with C no.4 (SUPER B COMPLEX + C) 150 mg tabl et 2019-06-19 14:01:32 Yes 1{tbl} Take 1 tablet by mouth. Jose Elias Diamond tamsulosin (FLOMAX) 0.4 mg capsule 2019-06-19 14:01:32 Yes .4mg QD Take 0.4 mg by mouth daily. Jose Elias Diamond traZODone (DESYREL) 50 MG tablet 2019-06-19 14:01:32 Yes 50mg QD Take 50 mg by mouth nightly. Jose Elias Diamond cholecalciferol, vitamin D3, (VITAMIN D3) 2,000 unit capsule capsule 2019-06-19 14:01:32 Yes 2000U QD Take 2,000 Units b y mouth daily. Jose Elias Diamond Cholecalciferol (Vitamin D3) (Vitamin D) 1,000 Unit Ta blet Cholecalciferol (Vitamin D3) (Vitamin D) 1,000 Unit Tablet Yes [address] [facility] Clonidine Hcl 0.2 Mg Tablet Clonidine Hcl 0.2 Mg Tablet Yes .2 Bedtime [facility] Duloxetine Hcl (Cymbalta) 30 Mg Capsule. Duloxetine Hcl (Cymbalta) 30 Mg Capsule. Yes 60 Daily [facility] Fenofibrate Nanocrystallized (Fenofibrate) 145 Mg Tabl et Fenofibrate Nanocrystallized (Fenofibrate) 145 Mg Tablet Yes 160 Bedtime [facility] Folic Acid/Vitamin B Comp W-C (Super B-Complex Folic-V it C Tb) 400 Mcg Tablet Folic Acid/Vitamin B Comp W-C (Super B-Complex Folic-Vit C Tb) 400 Mcg Tablet Yes 1 Daily [facility] Hydrochlorothiazide 12.5 Mg Tablet Hydrochlorothiazide 12.5 Mg Tablet Yes 1 [facility] Metoprolol Tartrate 25 Mg Tablet Metoprolol Tartrate 25 Mg Tablet Yes 25 [facility] Multivitamin W/Iron, Minerals (Spectravite Senior) 1 E ach Tablet Multivitamin W/Iron, Minerals (Spectravite Senior) 1 Each Tablet Yes 1 Daily [facility] Kila-3 Fatty Acids/Fish Oil (Kila 3 Fish Oil Softgel ) 1 Each Capsule.dr Lomeli 3 Fatty Acids/Fish Oil (Kila 3 Fish Oil Softgel) 1 Each Capsule. Yes 1 Daily [facility] Quinapril Hcl 20 Mg Tablet Quinapril Hcl 20 Mg Tablet Yes 20 Twice A Day [facility] Tamsulosin Hcl 0.4 Mg Cap.er.24h Tamsulosin Hcl 0.4 Mg Cap.er.24h Yes .4 Bedtime [facility] Trazodone Hcl 50 Mg Tablet Trazodone Hcl 50 Mg Tablet Yes [address] [facility] Procedures Procedure Date / Time Performed Performing Clinician [facility] Computed tomography of brain without radiopaque contrast 201 12-03-24 00:00:00 KASSIE [facility] Computed tomography of cervical spine without contrast 07-24 00:00:00 KASSIE H[facility] Bilateral vasectomy [facility] Cataract surgery [facility] Encounters Start Date/Time End Date/Time Encounter Type Admission Type [facility] Care Department Encounter ID Source 2019-09-11 11:28:00 2019-09-11 23:59:00 Outpatient Alejandro Oswald MHOIP MHOIP [id number] 2019-08-20 13:20:00 2019-08-20 23:59:00 Outpatient Yoana Maguire MHSE MHSE [id number] 2018-07-24 20:10:00 2018-07-24 23:00:00 Departed Emergency Room [address] [facility] [id number] [facility] 2018-03-28 13:54:00 2018-03-28 13:54:[address] [facility] [id number] [facility] 2017-06-12 15:14:00 2017-06-14 17:22:00 Discharged Inpatient (obs) ER TATAMARAC[facility] [id number] [facility] 2017-03-08 14:20:00 2017-03-08 14:20:00 Registered Clinic ADONIS MALONEY [facility] [id number] [facility] Results Test Description Test Time Test Comments Results Result Comments Source Stress Test - Treadmill ONLY 2019-09-18 18:16:00 [place] [address] Patient Name : DENIZ RESENDIZ MR #: [id number] : 1935 Age/Sex: 84/M Adm Physician : KATHE TARIQ MD Admit Date : 09/10/19 Location : [place] Room/Bed : REPORT: Myoview Stress Test DATE OF STUDY: 09/10/2019 10:11:00 Stress Test - Treadmill ONLY PROCEDURE TITLE: Rest stress single isotope SPECT imaging with pharmacologic stress and gated SPECT imaging. INDICATION: Chest pain. PROCEDURE IN DETAIL: Pharmacologic stress testing was performed with regadenoson under the usual protocol. The baseline heart rate was 64 beats per minute, debi to 71 beats per minute. Baseline blood pressure was 143/65 and decreased to 134/62. Both of which are normal for regadenoson. Baseline 12-lead electrocardiogram showed normal sinus rhythm. There were no ST changes suggestive of ischemia or cardiac arrhythmias noted throughout the stress protocol or recovery. FINDINGS: The overall quality of the study is fair. The left ventricular cavity appears normal in size on both rest and stress images. SPECT images reveal normal myocardial perfusion. Gated SPECT imaging revealed normal myocardial thickening and wall motion. Left ventricular ejection fraction was calculated to be greater than 70%. IMPRESSION: Normal myocardial perfusion and normal left ventricular systolic function. DO VICTORINO Nuñez/GÓMEZ /[id number] Signature Date Dictated By: DOYLE CLAROS DO Transcribed By: GÓMEZ on 09/18/19 <Electronically signed by DOYLE CLAROS DO><<Signature on File>>10/07/19 0348 COPY TO: CT CERVICAL SPINE WO 2018-07-24 22:13:00 [place] [address] Patient Name: DENIZ RESENDIZ MR #: [id number] : 1935 Age/Sex: 82/M Req #: [id number] Adm Physician: Ordered by: KASSIE HAMILTON MD Report #: [id number] Location: ER Room/Bed: Procedure: [id number] CT/CT CERVICAL SPINE WO Exam Date: 07/24/18 Exam Time: 2120 REPORT STATUS: Signed ADDENDUM #1 Additional history: Report of struck back of head on cement and patient 'tripped and fell back" per daughter. Signed by: Dr. Marisel Patton M.D. on 07/30/2018 2:04 AM ORIGINAL REPORT History: Status post fall. Comparison studies: CT cervical spine from 12/20/2015. Technique: Axial images were obtained through the cervical region.. Coronal and sagittal images reconstructed from the axial data. Dose modulation, iterative reconstruction, and/or weight based adjustment of the mA/kV was utilized to reduce the radiation dose to as low as reasonably achievable. Intravenous contrast: None Findings: Fractures: None. Soft tissue injuries: None. Atlantoaxial articulation: Intact. Alignment: Reversal of normal cervical lordosis is either positional or due to muscle spasm. No scoliosis. 1.5 mm grade 1 anterolisthesis at C4-C5 and 2 mm grade 1 retrolisthesis at C5-C6, is likely degenerative. Cervicomedullary junction: No abnormalities. The foramen magnum is patent. Soft tissues: Hypodense nodules in bilateral lobes of thyroid gland, approximately measures 1.6 cm in long axis on the right and 1.5 mm in the left lobe. Vertebrae: No fractures, infection or neoplasm. Degenerative changes: C2-C3: Mild right foraminal stenosis due to advanced right facet arthrosis. C3-C4: Mild degenerative disc disease. Posterior disc osteophyte complex results in mild canal stenosis. Severe right and mild left foraminal stenosis due to facet and uncovertebral arthrosis. C4-C5: Moderate right and mild left foraminal st enosis due to facet and uncovertebral arthrosis. C5-C6: Severe degenerative disc disease. Posterior disc osteophyte complex results in mild to moderate canal stenosis. Moderate right and severe left foraminal stenosis due to facet and uncovertebral arthrosis. C6-C7: Moderate degenerative disc disease. Posterior disc osteophyte complex results in mild canal stenosis. Moderate bilateral foraminal stenosis due to facet and uncovertebral arthrosis. IMPRESSION: 1. No acute cervical spine fracture or dislocation. Reversal of normal cervical lordosis is either positional or due to muscle spasm. 2. Ligament, spinal cord and or vascular abnormalities cannot be excluded on the basis of this examination. 3. Cervical spondylosis as detailed above. Signed by: Dr. Marisel Patton M.D. on 07/24/2018 10:19 PM Dictated By: MARISEL PATTON MD 3 Transcribed By: POOJA on 07/24/18 [id number] COPY TO: KASSIE HAMILTON MD CT BRAIN WO 2018-07-24 22:05:00 [place] [address] Patient Name: DENIZ RESENDIZ MR #: [id number] : 1935 Age/Sex: 82/M Req #: [id number] [facility] Physician: Ordered by: KASSIE HAMILTON MD Report #: [id number] Location: ER Room/Bed: Procedure: [id number] CT/CT BRAIN WO Exam Date: 07/24/18 Exam Time: 2120 REPORT STATUS: Signed ADDENDUM #1 Additional history: Report of struck back of head on cement and patient 'tripped and fell back" per daughter. Signed by: Dr. Marisel Patton M.D. on 07/30/2018 2:03 AM ORIGINAL REPORT EXAMINATION: Head CT without contrast. HISTORY:Status post fall. COMPARISON:CT brain from 07/27/2016. TECHNIQUE: Multidetector axial images were obtained from the foramen magnum to the vertex without contrast. The images were reconstructed using brain and bone algorithms. Thin section brain images were reformatted into coronal and sagittal planes. Dose modulation, iterative reconstruction, and/or weight based adjustment of the mA/kV was utilized to reduce the radiation dose to as low as reasonably achievable. Intravenous contrast: None IMAGE QUALITY: Acceptable. FINDINGS: Skull/scalp: Unchanged nonspecific subcutaneous soft tissue thickening in left occipital scalp may represent scar. Parenchyma: No unchanged nonspecific bilateral frontoparietal patchy white matter hypodensity are likely related to small vessel ischemic changes. No acute hemorrhage, mass or acute major vascular territorial infarct. Arteries: No density suggestive of thrombosis. Atherosclerotic calcification in bilateral carotid siphon. Dural sinuses: No abnormal density suggestive of thrombosis. Ventricles: Unchanged marked ventriculomegaly slightly disproportionate to the amount of cerebral volume loss. Extra-axial spaces: No abnormal density. Brain volume: Moderate generalized volume loss, with predominant involvement of bilateral temporal lobes with markedly dilated bilateral sylvian fissures remains unchanged. Craniocervical junction: No mass, Chiari malformation, or basilar invagination. Sella: No mass. Paranasal/mastoid sinuses: Imaged portions unremarkable. IMPRESSION: No acute intracranial abnormality. No change since CT brain from 07/27/2016. Chronic findings: 1. Mild supratentorial white matter microvascular ischemic changes. 2. Moderate generalized cerebral volume loss, with mild predominant involvement of bilateral temporal lobes. 3. Marked ventriculomegaly slightly disproportionate to the amount of cerebral volume loss may represent normal pressure hydrocephalus or due to central cerebral volume loss in appropriate clinical setting. Signed by: Dr. Marisel Patton M.D. on 07/24/2018 10:13 PM Dictated By: MARISEL PATTON MD [id number] Transcribed By: POOJA on 07/24/18 2962 COPY TO: KASSIE HAMILTON MD Bedside Glucose 2017-06-14 16:38:00 Test Item Bedside Glucose (test code = 47091-8) 119 70-120 Meter ID: [id number] Level 2017-06-14 07:09:00* Test Item Value Reference Range Interpretation Comments Sodium Level (test code = 2951-2) 135 136-145 L [facility] HospitalPotassium [id number] 07:09:00* Test Item Value Reference Range Interpretation Comments Potassium Level (test code = 2823-3) 3.3 3.5-5.1 L [facility] HospitalChloride [id number] 07:09:00* Test Item Value Reference Range Interpretation Comments Chloride Level (test code = 2075-0) 104 98-107 [facility] HospitalCarbon Dioxide [id number] 07:09:00* Test Item Value Reference Range Interpretation Comments Carbon Dioxide Level (test code = 2028-9) 23 22-29 [facility] HospitalAnion [id number] 07:09:00* Test Item Value Reference Range Interpretation Comments Anion Gap (test code = 77816-6) 11.3 8-16 [facility] HospitalBlood Urea [id number] 07:09:00* Test Item Value Reference Range Interpretation Comments Blood Urea Nitrogen (test code = 3094-0) 20 7-26 [facility] HospitalCreatinine2018-03-16 07:09:00* Test Item Value Reference Range Interpretation Comments Creatinine (test code = 2160-0) 1.38 0.72-1.25 H [facility] HospitalBUN/Creatinine [id number] 07:09:00* Test Item Value Reference Range Interpretation Comments BUN/Creatinine Ratio (test code = 3097-3) 14 6-25 [facility] HospitalEstimat Glomerular Filtration Rate 2017-06-14 07:09:00* Test Item Value Reference Range Interpretation Comments Estimat Glomerular Filtration Rate (test code = 62253-6) 49 >60 L Ranges were taken from the National Kidney Disease Education Program and the [facility] [employer] literature.Reference ranges:60 or greater: Fftxcw10-05 ( for 3 consecutive months): Chronic kidney disease 15 or less: Kidney failureMedical Center HospitalGlucose [id number] 07:09:00* Test Item Value Reference Range Interpretation Comments Glucose Level (test code = IBA1628) 117 74-118 [facility] HospitalCalcium [id number] 07:09:00* Test Item Value Reference Range Interpretation Comments Calcium Level (test code = 96274-1) 8.1 8.4-10.2 L [facility] HospitalCreatine [id number] 06:59:00* Test Item Value Reference Range Interpretation Comments Creatine Kinase (test code = 2157-6) 98 30-200 [facility] HospitalCreatine Kinase [id number] 06:55:00* Test Item Value Reference Range Interpretation Comments Creatine Kinase MB (test code = 97712-6) 1.70 0-5.0 [facility] HospitalTroponin [id number] 06:55:00* Test Item Value Reference Range Interpretation Comments Troponin I (test code = PCK7770) 0.023 0-0.300 [facility] HospitalWhite Blood Tsamr3493-14-00 06:32:00* Test Item Value Reference Range Interpretation Comments White Blood Count (test code = 6690-2) 9.68 4.8-10.8 [facility] HospitalRed Blood [id number] 06:32:00* Test Item Value Reference Range Interpretation Comments Red Blood Count (test code = 789-8) 4.57 4.3-5.7 [facility] HospitalHemoglobin2018-03-15 06:32:00* Test Item Value Reference Range Interpretation Comments Hemoglobin (test code = 34543-1) 14.3 14.0-18.0 [facility] HospitalHematocrit2018-03-15 06:32:00* Test Item Value Reference Range Interpretation Comments Hematocrit (test code = 4544-3) 41.9 38.2-49.6 [facility] HospitalMean Corpuscular [id number] 06:32:00* Test Item Value Reference Range Interpretation Comments Mean Corpuscular Volume (test code = 787-2) 91.7 81-99 [facility] HospitalMean Corpuscular Edfhrhqxon2033-71-29 06:32:00* Test Item Value Reference Range Interpretation Comments Mean Corpuscular Hemoglobin (test code = 785-6) 31.3 28-32 [facility] HospitalMean Corpuscular Hemoglobin Concent 2017-06-13 06:32:00* Test Item Value Reference Range Interpretation Comments Mean Corpuscular Hemoglobin Concent (test code = 786-4) 34.1 31-35 [facility] HospitalRed Cell Distribution [id number] 06:32:00* Test Item Value Reference Range Interpretation Comments Red Cell Distribution Width (test code = 22408-7) 13.5 11.7 -14.4 [facility] HospitalPlatelet [id number] 06:32:00* Test Item Value Reference Range Interpretation Comments Platelet Count (test code = 777-3) 276 140-360 [facility] HospitalNeutrophils (%) (Auto)2017-06-13 06:32:00 * Test Item Value Reference Range Interpretation Comments Neutrophils (%) (Auto) (test code = 27141-7) 65.3 38.7-80.0 [facility] HospitalLymphocytes (%) (Auto)2017-06-13 06:32:00 * Test Item Value Reference Range Interpretation Comments Lymphocytes (%) (Auto) (test code = 736-9) 22.1 18.0-39.1 [facility] HospitalMonocytes (%) (Auto)2017-06-13 06:32:00* Test Item Value Reference Range Interpretation Comments Monocytes (%) (Auto) (test code = 5905-5) 8.5 4.4-11.3 [facility] HospitalEosinophils (%) (Auto)2017-06-13 06:32:00 * Test Item Value Reference Range Interpretation Comments Eosinophils (%) (Auto) (test code = 713-8) 1.5 0.0-6.0 [facility] HospitalBasophils (%) (Auto)2017-06-13 06:32:00* Test Item Value Reference Range Interpretation Comments Basophils (%) (Auto) (test code = 706-2) 0.6 0.0-1.0 [facility] HospitalIM GRANULOCYTES %2017-06-13 06:32:00* Test Item Value Reference Range Interpretation Comments IM GRANULOCYTES % (test code = IM GRANULOCYTES %) 2.0 0.0- 1.0 H [facility] HospitalNeutrophils # (Auto)2017-06-13 06:32:00* Test Item Value Reference Range Interpretation Comments Neutrophils # (Auto) (test code = 751-8) 6.3 2.1-6.9 [facility] HospitalLymphocytes # (Auto)2017-06-13 06:32:00* Test Item Value Reference Range Interpretation Comments Lymphocytes # (Auto) (test code = 54154-2) 2.1 1.0-3.2 [facility] HospitalMonocytes # (Auto)2017-06-13 06:32:00* Test Item Value Reference Range Interpretation Comments Monocytes # (Auto) (test code = 742-7) 0.8 0.2-0.8 [facility] HospitalEosinophils # (Auto)2017-06-13 06:32:00* Test Item Value Reference Range Interpretation Comments Eosinophils # (Auto) (test code = 711-2) 0.2 0.0-0.4 [facility] HospitalBasophils # (Auto)2017-06-13 06:32:00* Test Item Value Reference Range Interpretation Comments Basophils # (Auto) (test code = 704-7) 0.1 0.0-0.1 [facility] HospitalAbsolute Immature Granulocyte (auto 2017-06-13 06:32:00* Test Item Value Reference Range Interpretation Comments Absolute Immature Granulocyte (auto (meghna t code = Absolute Immature Granulocyte (auto) 0.19 0-0.1 H [facility] HospitalUrine [id number] 17:28:00* Test Item Value Reference Range Interpretation Comments Urine WBC (test code = 5821-4) 0-5 0-5 [facility] HospitalUrine [id number] 17:28:00* Test Item Value Reference Range Interpretation Comments Urine RBC (test code = 82660-1) 0-5 0-5 [facility] HospitalUrine [id number] 17:28:00* Test Item Value Reference Range Interpretation Comments Urine Bacteria (test code = 14874-1) FEW NONE [facility] HospitalUrine Epithelial [id number] 17:28:00 * Test Item Value Reference Range Interpretation Comments Urine Epithelial Cells (test code = 33751-5) FEW NONE [facility] HospitalUrine Hyaline [id number] 17:28:00* Test Item Value Reference Range Interpretation Comments Urine Hyaline Casts (test code = 07910-0) 6-10 0-1 H [facility] HospitalUrine [id number] 17:11:00* Test Item Value Reference Range Interpretation Comments Urine Color (test code = 5778-6) YELLOW YELLOW [facility] HospitalUrine [id number] 17:11:00* Test Item Value Reference Range Interpretation Comments Urine Clarity (test code = 38536-2) CLEAR CLEAR [facility] HospitalUrine Specific [id number] 17:11:00 * Test Item Value Reference Range Interpretation Comments Urine Specific Procious (test code = 5811-5) 1.025 1.010-1.02 5 [facility] HospitalUrine [id number] 17:11:00* Test Item Value Reference Range Interpretation Comments Urine pH (test code = 70370-2) 5 5-7 [facility] HospitalUrine Leukocyte [id number] 17:11:00* Test Item Value Reference Range Interpretation Comments Urine Leukocyte Esterase (test code = 5799-2) NEGATIVE NEGATIVE [facility] HospitalUrine [id number] 17:11:00* Test Item Value Reference Range Interpretation Comments Urine Nitrite (test code = 42477-2) NEGATIVE NEGATIVE [facility] HospitalUrine [id number] 17:11:00* Test Item Value Reference Range Interpretation Comments Urine Protein (test code = 5804-0) NEGATIVE NEGATIVE [facility] Glucose (UA)2017-06-12 17:11:00* Test Item Value Reference Range Interpretation Comments Urine Glucose (UA) (test code = 2349-9) NEGATIVE [facility]GATIVE [facility] Rcsckhu4076-00-29 17:11:00* Test Item Value Reference Range Interpretation Comments Urine Ketones (test code = 24600-7) NEGATIVE NEGATIVE [facility] Rixsaeuibtov3819-84-99 17:11:00* Test Item Value Reference Range Interpretation Comments Urine Urobilinogen (test code = 96205-5) 1 0.2-1 [facility] Setlnszko9827-00-80 17:11:00* Test Item Value Reference Range Interpretation Comments Urine Bilirubin (test code = 1978-6) 1+ NEGATIVE H Confirmatory test currently unavailable. False positive results may occur.[facility] Hospital[facility] Xvcvg1768-91-46 17:11:00* Test Item Value Reference Range Interpretation Comments Urine Blood (test code = 50930-9) NEGATIVE NEGATIVE [facility] HospitalTotal Ideffulen8913-44-95 12:34:00* Test Item Value Reference Range Interpretation Comments Total Bilirubin (test code = 1975-2) 1.3 0.2-1.2 H [facility] HospitalAspartate Amino Transf (AST/SGOT) 2017-06-12 12:34:00* Test Item Value Reference Range Interpretation Comments Aspartate Amino Transf (AST/SGOT) (test code = Aspartate Amino Transf (AST/SGOT)) 18 5-34 [facility] HospitalAlanine Aminotransferase (ALT/SGPT) 2017-06-12 12:34:00* Test Item Value Reference Range Interpretation Comments Alanine Aminotransferase (ALT/SGPT) (test code = 1742-6) 15 0-55 [facility] Hospital[facility] Iblopdw1689-85-33 12:34:00* Test Item Value Reference Range Interpretation Comments Total Protein (test code = 2885-2) 7.5 6.5-8.1 [facility] HospitalAlbumin2018-03-14 12:34:00* Test Item Value Reference Range Interpretation Comments Albumin (test code = 1751-7) 3.9 3.5-5.0 [facility] HospitalGlobulin2018-03-14 12:34:00* Test Item Value Reference Range Interpretation Comments Globulin (test code = 91830-7) 3.6 2.3-3.5 H [facility] HospitalAlbumin/Globulin Qdlip0723-36-65 12:34:00 * Test Item Value Reference Range Interpretation Comments Albumin/Globulin Ratio (test code = 1759-0) 1.1 0.8-2.0 [facility] HospitalAlkaline Gqmranhlspv6924-70-54 12:34:00* Test Item Value Reference Range Interpretation Comments Alkaline Phosphatase (test code = 6768-6) 32 40-150 L [facility] HospitalLipase2018-03-14 12:34:00* Test Item Value Reference Range Interpretation Comments Lipase (test code = 3040-3) 39 8-78 [facility] HospitalCT ABDOMEN/PELVIS WO [facility] [address] [address] Patient Name: DENIZ RESENDIZ MR #: [id number] : 1935 Age/Sex: 81/M Req #: [id number] Adm Physician: Ordered by: CODY PAYTON MD Report #: [id number] Location: [facility] cutler/Bed: Procedure: [id number] CT/CT ABDOMEN/PELVIS WO Exam Date: 06/12/17 Exam Time: [address] ATUS: Signed PROCEDURE: CT ABDOMEN AND PELVIS WITHOUT CONTRAST TECHNIQU E: The abdomen and pelvis were scanned utilizing a multidetector helical s canner from the diaphragm to the lesser trochanter after the oral administrat ion of Gastroview. No intravenous contrast was administered per referring phy sician request. Coronal and sagittal multiplanar reformations were obtained. COMPARISON: None. INDICATIONS: VOMITING, ABD PAIN FINDINGS: ABSENCE OF INTRAVENOUS CONTRAST DECREASES SENSITIVITY FOR DETECTION OF FOCAL LESIONS AND VASCULAR PATHOLOGY. LOWER THORAX: Multiple calcified p leural plaques along the anterior and diaphragmatic surfaces. Linear and reti cular opacities in the bases likely reflect fibrotic changes. Atherosclerotic coronary artery calcifications. HEPATOBILIARY: No focal hepatic lesion s. No biliary ductal dilatation. SPLEEN: No splenomegaly. PANCREAS: No foca l masses or ductal dilatation. ADRENALS: No adrenal nodules. KIDNEYS/URE TERS: Bilateral nonspecific perinephric fat stranding. Simple cyst projecting exophytically from the lower pole of the left kidney, average internal atten uation 5-10 Hounsfield units. No hydronephrosis. No renal, ureteral, or bladd er calculi. PELVIC ORGANS/BLADDER: The urinary bladder is incompletely distend ed but otherwise unremarkable. Probable changes related to TURP. PERITO NEUM / RETROPERITONEUM: No ascites. No pneumoperitoneum. LYMPH NODES: No pelvi c sidewall, retroperitoneal, or mesenteric lymphadenopathy. VESSELS: Athero sclerotic calcification of the abdominal aorta and branch vessels without ane urysmal dilatation. Otherwise limited evaluation in the absence of intravenou s contrast. 2 renal arteries supply each kidney. GI TRACT: The large salomon wel shows no evidence of distention or wall thickening. The appendix is not d efinitively identified and may have been removed. There are several mildly di lated loops of small bowel in the upper and mid abdomen, to a maximum caliber of approximately 3.6 cm. No definite transition point is identified, and the distal ileum is decompressed BONES AND SOFT TISSUES: Small fat-contain ing umbilical hernia. Otherwise no focal soft tissue abnormalities. No osseou s destructive lesions. Mild bilateral sacroiliac degenerative changes. Multil evel degenerative disc changes and facet arthropathy of the lumbar spine. IMPRESSION: Multiple mildly dilated loops of small bowel in the upper a bdomen likely reflects ileus related to enteritis in the clinical setting of vomiting and abdominal pain. No transition point is identified to suggest high-grade small bowel obstruction. 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 Dictated by: Fabrizio Patten M.D. on 06/12/2017 at 13:47 Electronically appr mat by: Fabrizio Patten M.D. on 06/12/2017 at 13:47 Dictated By: AIMEE PATTEN MD 1347 Hdz scribed By: RAÚL on 06/12/17 1347 COPY TO: CODY PAYTON MD US RENAL RETROPERITONEAL COMP [address] [address] Patient Name: DENIZ RESENDIZ MR #: [id number] : 1935 Age/Sex: 81/M Req #: [id number] Adm Physician: Ordered by: ADONIS MURCIA MD Report #: [id number] Location: US Room/Bed: Procedure: [id number] US/US RENAL RETROPERITONEAL CO MP Exam Date: 03/08/17 Exam Time: 1440 REPORT STATUS: Signed PROCEDURE: US RETROPERITONEAL ( KIDNEY ). COMPARISON: No ne. INDICATIONS: Hematuria, Elevated Creatine TECHNIQUE: Gamino-scale and co true sonographic images of the bilateral kidneys and bladder where obtained in transverse and longitudinal planes. FINDINGS: RIGHT KIDNEY: 1 3.3 cm, cortex 1.5 cm Cysts: None. Solid masses: None. Stones: None. Hyd ronephrosis: None. Echogenicity: Normal. LEFT KIDNEY: 14.8 cm, cortex 2 cm Cysts: 1.4 x 1.1 x 1.2 cm inferior pole cyst. Solid masses: None. Stone s: None. Hydronephrosis: None. Echogenicity: Normal. Bladder: Unremark able. Bilateral ureteral jets detected. Prostate: Within normal limits. CONCLUSION: Unremarkable renal ultrasound. No evidence of nephrolithi asis. Dictated by: Yg Brownlee M.D. on 03/08/2017 at 15:43 Electronically approved by: Yg Brownlee M.D. on 03/08/2017 at 15:43 Dictated By: YG BROWNLEE MD 154 Transcribed By: RAÚL on 03/08/171542 COPY TO: ADONIS BAUER MD
--- OUTSIDE RECORDS SUMMARY | 2019-11-02 11:11 | XMS REPORT | Clinical Summary ---
Author Author [facility] Address Unknown Phone Unavailable Care Team Providers Care Electrical Contacts Adjuster Name Role Phone Asked, No Pcp PCP [...] daily. Active Problems No known active problems Family History Medical History Relation Name Comments Diabetes Brother Heart disease Brother Uterine cancer Mother Diabetes Sister Relation Name Status Comments Brother Mother Sister Social History Date Tobacco Use Types Packs/Day Years Used Former Smoker Smokeless Tobacco: Never Used Drinks/Week oz/Week Comments Alcohol Use No Alcohol Habits Answer Date Recorded How often do you have a drink containing alcohol? Never 02/11/2018 How many drinks containing alcohol do you have on No t asked a typical day when you are drinking? How often do you have six or more drinks on one Not asked occasion? Sex Assigned at Date Recorded Not on file Industry Job Start Date Occupation Not on file Not on file Not on file Travel End Travel History Travel Start No recent travel history available. Last Filed Vital Signs Not on file Plan of Treatment Not on file Results Not on fileafter 11/01/2018 Insurance Type Payer Benefit Subscriber ID Effective Phone Address Plan / Dates Group HMO [employer] CIGNA xxxxxxxx [id number] [employer]
--- OUTSIDE RECORDS SUMMARY | 2019-11-02 11:11 | XMS REPORT | Summary of Care ---
Author Author [facility] Organization [facility] Address Unknown Phone Unavailable Encounter BELTRAN Watson(FIN) [id number] Date(s): 08/20/19 - 08/20/19 [facility] [address] [place] [address]- Discharge Disposition: Home or Self Care Attending Physician: Yoana Rivera MD Vital Signs No data available for this section Problem List Condition Effective Dates Status Health Status Informan t Benign essential Active HTN(Confirmed) Atherosclerosis of Active coronary artery(Confirmed) Escherichia 05/29/19 Active coli(Confirmed)1, 2 H/O prostate Active cancer(Confirmed) Hyperlipidemia(Confi Active rmed) Peripheral Active neuropathy(Confirmed ) 1urine (ESBL+), 05/29/2019 2Problem added by Discern Expert. Allergies, Adverse Reactions, Alerts Substance Reaction Severity Status Motrin Active Medications No data available for this section Results No data available for this section Immunizations No data available for this section Procedures Procedure Date Related Diagnosis Body Site Status Bilateral vasectomy Completed Cataract surgery Completed Social History Social History Type Response Alcohol Never Smoking Status Former smoker; Type: Cigare ttes; Previous treatment: None; Ready to change: No; Concerns about tobacco use in house hold: No; Exposure to Tobacco Smoke None; Cigarette Smoking Last 365 Days N o; Reg Smoking Cessation Counseling No entered on: 05/29/19 Assessment and Plan No data available for this section
--- OUTSIDE RECORDS SUMMARY | 2019-11-02 11:11 | XMS REPORT | Summary of Care ---
Author Author [facility] Organization [facility] Address Unknown Phone Unavailable Encounter [facility] Encntr_aliuri(FIN) [id number] Date(s): 09/11/19 - 09/11/19 [facility] Outpatient Imaging [place] [address] [address], [address] Asif williamson [place] [phone]- [phone] Discharge Disposition: Home or Self Care Attending [...]
--- NOTE | 2019-11-02 11:43 | Emergency Department Note ---
History of Present Illnes History of Present Illness Chief Complaint: General Medicine Complaints History of Present Illness This is a 84 year old male who presents with for rash and decreased appetite. He has had multiple falls over the last few months and recently was hospitalized for a stroke and fall. He has fallen a couple times in the last few days but denies any pain. Per his appetite is decreased and he has a rash to his forehead. Started 3 days ago. Historian: Patient Arrival Mode: Car Skidder Required: No Onset (how long ago): day(s) (3) Past Medical/Family History Physician Review I have reviewed the patient's past medical and family history. Any updates have been documented here. Past Medical History Recent Fever: No Clinical Suspicion of Infectio: No New/Unexplained Change in Ment: No Past Medical History: Hypertension, CVA, Depression, Hyperlipedemia, DVT/PE, Osteoarthritis Other Medical History: Prostate CA Prostate Enlargement Asbestos multiple falls esbl acute kidney injury Skin cancer Gout Other Surgery: Vasectomy Prostate radiation cataract Social History Smoking Cessation: Never Smoker Counseling Performed: No Alcohol Use: None Any Illegal Drug Use: No Other Last Tetanus: OOD Any Pre-Existing Lines (PICC,: No Physical Exam Related Data Allergies: Coded Allergies: ibuprofen (Verified Allergy, Mild, THROAT SWELLS, 07/27/16) Triage Vital Signs Vital Signs Date Time Temp Pulse Resp B/P (MAP) Pulse Ox O2 Delivery O2 Flow Rate FiO2 11/02/19 11:02 97.4 83 18 118/60 97 Physical Exam CONSTITUTIONAL Constitutional: Present well-developed, Present well-nourished HENT HENT: Present normocephalic, Present atraumatic, Present oropharynx clear/moist, Present nose normal, Present other (Macular erythematous rash to forehead) HENT L/R: Present left ext ear normal, Present right ext ear normal EYES Eyes: Reports PERRL, Reports conjunctivae normal NECK Neck: Present ROM normal PULMONARY Pulmonary: Present effort normal, Present breath sounds normal CARDIOVASCULAR Cardiovascular: Present regular rhythm, Present heart sounds normal, Present capillary refill normal, Present normal rate GASTROINTESTINAL Abdominal: Present soft, Present nontender, Present bowel sounds normal GENITOURINARY Genitourinary: Present exam deferred SKIN Skin: Present warm, Present dry MUSCULOSKELETAL Musculoskeletal: Present ROM normal NEUROLOGICAL Neurological: Present alert, Present oriented x 3, Present no gross motor or sensory deficits PSYCHOLOGICAL Psychological: Present mood/affect normal, Present judgement normal Results Laboratory Lab results reviewed: Yes Imaging Imaging results reviewed: Yes Diagnostics Tests Diagnostic test(s) reviewed: Yes Procedures 12 Lead ECG Interpretation ECG Interpretation : Skidder: Interpreted by ED physician Date: Nov 02, 2019 Prior ECG tracings: reviewed Rhythm: sinus rhythm ST segments normal: Yes T waves normal: Yes Assessment & Plan Medical Decision Making MDM 84 y.o M presenting for rash. Rash to forehead is non specific and does not seem to bother patient. W/u shows FREDRICK w/ Cr 2.5 and UA with 20-50 WBC. Given history of recurrent UTI will treat with broad spectrum abx. CT head unremarkable. Doubt sepsis at this time. Discussed patient with Dr. Handy who has agreed to admit for UTI and FREDRICK. Given 500 cc NS as well. Assessment & Plan Final Impression: (1) Acute kidney injury (2) UTI (urinary tract infection) Depart Disposition: ADMITTED Last Vital Signs Date Time Temp Pulse Resp B/P (MAP) Pulse Ox O2 Delivery O2 Flow Rate FiO2 11/02/19 11:02 97.4 83 18 118/60 97 Home Meds Reported Medications Fenofibrate Nanocrystallized (FENOFIBRATE) 145 Mg Tablet, 160 TAB PO HS 06/12/17 Folic Acid/Vitamin B Comp W-C (SUPER B-COMPLEX FOLIC-VIT C TB) 400 Mcg Tablet, 1 TAB PO DAILY 07/27/16 Cholecalciferol (Vitamin D3) (VITAMIN D) 1,000 Unit Tablet, 4000 UNIT PO DAILY, #30 TAB 07/27/16 Multivitamin W/Iron, Minerals (SPECTRAVITE SENIOR) 1 Each Tablet, 1 TAB PO DAILY 07/27/16 Graham-3 Fatty Acids/Fish Oil (OMEGA 3 FISH OIL SOFTGEL) 1 Each Capsule.dr, 1 CAP PO DAILY 07/27/16 Trazodone Hcl (TRAZODONE HCL) 50 Mg Tablet, 50 MG PO HS, #30 TAB 07/27/16 Tamsulosin Hcl (TAMSULOSIN HCL) 0.4 Mg Cap.er.24h, 0.4 MG PO HS 07/27/16 Clonidine Hcl (CLONIDINE HCL) 0.2 Mg Tablet, 0.2 MG PO HS 07/27/16 Duloxetine Hcl (CYMBALTA) 30 Mg Capsule.dr, 60 MG PO DAILY, #30 CAP 07/27/16 Hydrochlorothiazide (HYDROCHLOROTHIAZIDE) 12.5 Mg Tablet, 1 TAB PO BID 07/27/16 Quinapril Hcl (QUINAPRIL HCL) 20 Mg Tablet, 20 MG PO BID, #30 TAB 07/27/16 Metoprolol Tartrate (METOPROLOL TARTRATE) 25 Mg Tablet, 25 MG PO BID, TAB 07/27/16 Brian Simmons MD Nov 02, 2019 11:43
[2019-11-02 12:40] LABS: BASOPHILS # (AUTO) 0.1 (0.0-0.1); BASOPHILS % 0.9 % (0.0-1.0); EOSINOPHILS # (AUTO) 0.2 (0.0-0.4); EOSINOPHILS % 1.5 % (0.0-6.0); HEMATOCRIT 38.5 % (38.2-49.6); HEMOGLOBIN 13.1 g/dL (14.0-18.0); LYMPHOCYTES # (AUTO) 2.4 (1.0-3.2); LYMPHOCYTES % 21.4 % (18.0-39.1); MEAN CORPUSCULAR HEMOGLOBIN 31.6 pg (28-32); MEAN CORPUSCULAR VOLUME 92.8 fL (81-99); MONOCYTES # (AUTO) 0.9 (0.2-0.8); MONOCYTES % 7.9 % (4.4-11.3); NEUTROPHILS # (AUTO) 7.6 (2.1-6.9); NEUTROPHILS % 67.6 % (38.7-80.0); PLATELET COUNT 415 x10e3/uL (140-360); RED BLOOD COUNT 4.15 x10e6/uL (4.3-5.7); RED CELL DISTRIBUTION WIDTH 13.2 % (11.7-14.4)
--- NOTE | 2019-11-02 12:51 | Diagnostic Imaging Report ---
Exam: Head CT without contrast History: Altered mental status Comparison studies: Multiple head CTs are stated to 12/20/2015, most recent 07/24/2018. Technique: Axial images were obtained from the skull base to the vertex. Coronal and sagittal images reconstructed from the axial data. Dose modulation, iterative reconstruction, and/or weight based adjustment of the mA/kV was utilized to reduce the radiation dose to as low as reasonably achievable. Radiation dose: Total DLP: 921.4 mGy*cm. Estimated effective dose: DLP x 0.015 Intravenous contrast: None Findings: Scalp: Nonspecific nodularity in the left occipital scalp is unchanged. Bones: No fractures, blastic or lytic lesions. Brain sulci: Partially effaced at the superior convexity. Remaining sulci are mildly or moderately prominent. Ventricles: Moderately dilated ventricles, slightly disproportionate to sulcal prominence which may be due to volume loss or normal pressure hydrocephalus (NPH) in the appropriate clinical setting. No acute hydrocephalus. Extra-axial spaces: No masses, no fluid collection. Parenchyma: Mass, acute hemorrhage or acute or chronic cortical insults. A few scattered hypodensities in the supratentorial white matter are nonspecific but are most compatible with chronic microvascular ischemic changes Sellar/suprasellar region: No abnormalities. Craniocervical junction: Patent foramen magnum. No Chiari one malformation. Incidental findings: Bilateral intraocular lens replacements. Atherosclerotic calcifications in the carotid siphons an in the intradural vertebral arteries. IMPRESSION: No acute intracranial abnormalities. Chronic findings: 1. Moderate generalized brain volume loss. 2. Mild microvascular ischemic changes. 3. Unchanged nonaggressive ventriculomegaly. Consider NPH in the appropriate clinical setting. No acute hydrocephalus. Signed by: Dr. Javy Verdugo M.D. on 11/02/2019 12:48 PM
[2019-11-02 12:53] LABS: INR 1.04; PROTHROMBIN TIME 14.1 seconds (11.9-14.5)
--- NOTE | 2019-11-02 12:58 | Diagnostic Imaging Report ---
EXAMINATION: CHEST 2 VIEWS INDICATION: Sepsis COMPARISON: None FINDINGS: LINES/TUBES:EKG leads overlie the chest. LUNGS:The lungs are moderately inflated. Mild bibasilar opacities, most likely subsegmental atelectasis. PLEURA:Bilateral geographic calcifications are likely pleural-based. MEDIASTINUM:The cardiomediastinal silhouette appears normal in size and shape. BONES/SOFT TISSUES:No acute osseous injury. ABDOMEN:No free air under the diaphragm. IMPRESSION: Bilateral geographic calcifications, most likely pleural-based, may be related to prior is vessels exposure. Mild bibasilar opacities, most likely subsegmental atelectasis. Signed by: Sancho Umana MD on 11/02/2019 12:55 PM
--- NOTE | 2019-11-02 13:00 | NUR ---
COVID TESTING DONE
[2019-11-02 13:02] LABS: ALBUMIN 3.9 g/dL (3.5-5.0); ALBUMIN/GLOBULIN RATIO 1.1 (0.8-2.0); CALCIUM 10.9 mg/dL (8.4-10.2); CREATININE, SERUM 2.74 mg/dL (0.72-1.25)
[2019-11-02 13:09] LABS: CLARITY,URINE SL CLOUDY (CLEAR); COLOR,URINE YELLOW (YELLOW); LEUKOCYTE ESTERASE ,URINE NEGATIVE (NEGATIVE); NITRITE,URINE NEGATIVE (NEGATIVE); PROTEIN,URINE DIPSTICK 1+ (NEGATIVE)
[2019-11-02 13:10] LABS: BACTERIA,URINE RARE /HPF; BILIRUBIN,URINE SMALL (NEGATIVE); KETONES,URINE 1+ (NEGATIVE); URINE UROBILINOGEN 0.2 mg/dL (0.2 - 1); WBC,URINE (MAN) 21-50 /HPF (0-5)
[2019-11-02 13:11] LABS: EPITHELIAL CELLS,URINE FEW /LPF
[2019-11-02] MEDS: CEFEPIME 2 GM/NS 0.9% 100 ML 100 ML IV SCH ×2 (14:08→15:27)
[2019-11-02] MEDS ORDERED: SODIUM CHLORIDE 0.9% 500ML 500 ML ONE (14:12)
[2019-11-02] MEDS ORDERED: SODIUM CHLORIDE 0.9% 1000ML 500 ML IV SCH (14:15)
[2019-11-02] MEDS ORDERED: CLINDAMYCIN 300MG 50 ML IV ONE (14:30)
--- OUTSIDE RECORDS SUMMARY | 2019-11-02 14:46 | XMS REPORT | Continuity of Care Document ---
Author Author [facility] Address Unknown Phone Unavailable Care Team Providers Care Electronics Assembler Name Role Phone [facility] Information Exchange Unavailable Un available Problems Problem Status Onset Date Classification Date Reported Comments Source R07.89 - OTHER CHEST PAIN [facility] Active 08/20/2019 [facility] Escherichia coli (organism) Ac tive 05/29/2019 Problem 09/13/2019 urine (ESBL+), 05/29/2019 Problem added by Discern Expert. [facility] Benign essential hypertension (disorder) Active Problem 09/13/2019 [facility] O[facility] D [place] Atherosclerosis of coronary artery (disorder) Active Problem 09/13/2019 [facility] [place] History of malignant neoplasm of prostate (situation) [facility] [place] Hyperlipidemia (disorder) Acti ve Problem [facility] OPID [place] d Peripheral nerve disease (disorder) [facility] Medications No Data Provided for This Section Allergies, Adverse Reactions, Alerts Substance Category Reaction Severity Reaction type Status Date Reported Comments Source Motrin Assertion Drug allergy Active [facility] Immunizations No Data Provided for This Section [...] present. Yung Monet MD On 09/11/2019 13:55:02; [id number] 09/11/2019 [facility] [place] Humerus 2 views DX PROCEDURE I NFORMATION: [...] Carrero MD On 08/20/2019 15:24:54; [id number] 08/20/2019 [facility] Shoulder series DX PROCEDURE I NFORMATION: Exam: [...] findings. Lloyd Best DO On 08/20/2019 17:39:16; [id number] 08/20/2019 [facility] Consultation Notes No Data Provided for This Section Discharge Summaries No Data Provided for This Section History and Physicals No Data Provided for This Section Vital Signs No Data Provided for This Section Encounters Location Location Details Encounter Type Encounter Number Reason For Visit Attending Provider ADM Date DC Date Status Source [facility] Outpatient [id number] Yoana Rivera 08/1908/21/2019 [facility]patient [facility] [place] [facility] [id number] Souaurora Oswald 09/11/2019 09/12/2019 [facility] Procedures Procedure Code Date Perfomer Comments Source Bilateral vasectomy [id number] [facility] Cataract surgery [id number] [facility] Assessment and Plan No Data Provided for [...] Cessation Counseling No entered on: 05/29/19 05/29/2019 [facility] Social History TypeResponse Alcohol Never Smoking Status Former smoker; Type: Cigarettes; Previous treatment: None; Ready to change: No; Concerns about tobacco use in household: No; Exposure to Tobacco Smoke None; Cigarette Smoking Last 365 Days No; Reg Smoking Cessation Counseling No entered on: 05/29/19 05/29/2019 [facility] Family History No Data Provided for This Section Advance Directives No Data Provided for This Section Functional Status No Data Provided for This Section
--- NOTE | 2019-11-02 15:05 | NUR ---
PATIENT SITING UP SNACKING ON GIANNA, GRAHM CRACKERS, PUDDING
[2019-11-02] MEDS ORDERED: SODIUM CHLORIDE 0.9% 1000ML 500 ML IV ONE (15:15)
--- NOTE | 2019-11-02 17:01 | NUR ---
RECEIVED PATIENT FROM ER. PATIENT A/O X3, EVEN RESPIRATIONS ON RA. NO S/S OF DISTRESS. ORIENTED PATIENT TO ROOM AND CALL LIGHT. BED LOW, WHEELS LOCKED, SIDE RAILS X2. CALL LIGHT IN REACH WILL CONTINUE TO MONITOR PATIENT.
[2019-11-02 17:30] VITALS: BP 128/72
[2019-11-02 17:36] VITALS: BP 128/72
[2019-11-02 17:40] VITALS: BP 128/72
--- NOTE | 2019-11-02 17:40 | NUR ---
PAGED DR. ROMERO REGARDING LACTIC ACID 2.9 NEW ORDER FOR NORMAL SALINE 60 MLS/HR NEW ORDERS IMPLEMENTED
[2019-11-02] MEDS: SODIUM CHLORIDE 0.9% 1000ML 1,000 ML IV SCH (18:24)
--- NOTE | 2019-11-02 19:30 | NUR ---
Patient visited in room during nursing rounds. Patient alert and oriented x3. COVID result pending. Patient stated he has not urinated yet. Pt will be given urinal tonight. Breathing on room air. Pt on IVF (NS at 60ml/hr) and on scheduled IV antibiotics. Call zamora within reach. Will monitor closely.
[2019-11-02 20:00] VITALS: BP 111/63
[2019-11-02 21:00] VITALS: BP 111/63
[2019-11-03] VITALS (8 sets, daily range): BP systolic 110–142; BP diastolic 56–82
[2019-11-03] MEDS: CEFEPIME 2 GM/NS 0.9% 100 ML 100 ML IV SCH ×2 (02:10→15:12)
--- NOTE | 2019-11-03 07:00 | NUR ---
RECEIVED PATIENT RESTING NO S/S OF DISTRESS. BED LOW, WHEELS LOCKED, SIDE RAILS X2. CALL LIGHT IN REACH. WILL CONTINUE TO MONITOR PATIENT.
[2019-11-03] MEDS: SODIUM CHLORIDE 0.9% 1000ML 1,000 ML IV SCH (10:25)
[2019-11-03] MEDS ORDERED: ACETAMINOPHEN 325 MG TAB PO PRN (11:15)
[2019-11-03] MEDS ORDERED: ZOLPIDEM TARTRATE 5 MG TAB PO PRN (11:15)
[2019-11-03] MEDS ORDERED: ONDANSETRON HCL INJ 2MG/ML 2ML 2 MG/ML VIAL IV PRN (11:15)
[2019-11-03] MEDS ORDERED: DOCUSATE SODIUM 100 MG CAP PO PRN (11:15)
--- NOTE | 2019-11-03 11:17 | NUR ---
H&P cc: reduced urine output and falls HPI: 84yoM, PCP ??, had falls at home, and possible syncope; pt is poor historian . No cp/sob at this time. 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 LEXX ROMERO MD, PHD
[2019-11-03 11:37] LABS: CHOL/HDL RATIO 4.3 (3.9-4.7)
[2019-11-03] MEDS: METOPROLOL TARTRATE 25 MG TAB PO SCH (16:53)
--- NOTE | 2019-11-03 16:54 | NUR ---
PATIENT AMBULATED 50 FEET USING WALKER WITH PT. PT RECOMMENDING HOME WITH HOME HEALTH. PATIENT HAS TO ASSIST AT HOME.
--- NOTE | 2019-11-03 19:10 | NUR ---
Patient visited in room during nursing rounds. Patient alert and oriented x3. COVID result pending. Patient stated he feels fine but still quite weak ever since his fall episode at home. Pt told that he walked with physical therapy in his room today. Breathing on room air. Pt on IVF (NS at 60ml/hr) and on scheduled IV antibiotics. Call zamora within reach. Will monitor closely.
--- NOTE | 2019-11-03 20:50 | NUR ---
Nurse (Good) spoke with Neeru Watson (Occup Ther) about plan to transfer patient to 101. Neeru stated that she received report that patient was negative for COVID and that no transfer orders from Dr. Handy needed in transferring patient from COVID unit out to regular room/unit. Currently, in [facility], COVID result still said "pending". Neeru dodson patient can be safely transferred to clean unit ([place] [id number]). Marie Cortes (Charge nurse) aware of plan to transfer patient.
--- NOTE | 2019-11-03 20:55 | NUR ---
Verbal report given to receiving nurse (Florina Prado RN) about patient information and reason for transfer.
[2019-11-03] MEDS: TAMSULOSIN HCL 0.4 MG CAP PO SCH (21:00)
[2019-11-03] MEDS ORDERED: FENOFIBRATE 145 MG TAB PO SCH (21:00)
[2019-11-03] MEDS: TRAZODONE HCL 50 MG TAB PO SCH (21:00)
--- NOTE | 2019-11-03 21:20 | NUR ---
Patient was transported safely via wheelchair from Rm. 186 (Covid unit) to Rm 101 per Internal Sales Engineer's request. Pt stable and denies discomfort at this time. Telemetry (Kristie) notified of new room assignment for patient.
--- NOTE | 2019-11-03 22:18 | NUR ---
PT IS TRANSFERRED FROM RM 186 ,PT IS AOX3 RESPIRATIONS ARE EVEN AND UNLABORED ,DENIES PAIN ,ORIENTED THE PT TO THE ROOM CALL LIGHT WITH IN REACH .CONTINUE TO MONITOR
[2019-11-04 00:02] VITALS: BP 142/68
[2019-11-04] MEDS: CEFEPIME 2 GM/NS 0.9% 100 ML 100 ML IV SCH ×2 (02:00→14:34)
[2019-11-04] MEDS: SODIUM CHLORIDE 0.9% 1000ML 1,000 ML IV SCH (03:25)
[2019-11-04 05:43] VITALS: BP 156/90
--- NOTE | 2019-11-04 06:12 | NUR ---
PT RESTED DURING THE NIGHT ,DENIES PAIN CALL LIGHT WITH IN REACH ,CONTINUE TO MONITOR
--- NOTE | 2019-11-04 06:48 | NUR ---
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 8-5 Hba1c/LDL/TG 6.6/61/311; use fibrate; check labs; LEXX ROMERO MD, PHD
--- NOTE | 2019-11-04 07:04 | NUR ---
BEDSIDE REPORT GIVEN TO THE ONCOMING NURSE
[2019-11-04 07:22] LABS: BASOPHILS # (AUTO) 0.1 (0.0-0.1); BASOPHILS % 1.1 % (0.0-1.0); EOSINOPHILS # (AUTO) 0.3 (0.0-0.4); EOSINOPHILS % 3.7 % (0.0-6.0); HEMATOCRIT 32.3 % (38.2-49.6); HEMOGLOBIN 11.1 g/dL (14.0-18.0); LYMPHOCYTES # (AUTO) 1.9 (1.0-3.2); LYMPHOCYTES % 21.6 % (18.0-39.1); MEAN CORPUSCULAR HEMOGLOBIN 30.9 pg (28-32); MEAN CORPUSCULAR HGB CONC 34.4 g/dL (31-35); MONOCYTES # (AUTO) 0.8 (0.2-0.8); MONOCYTES % 8.4 % (4.4-11.3); NEUTROPHILS # (AUTO) 5.7 (2.1-6.9); NEUTROPHILS % 64.3 % (38.7-80.0); RED BLOOD COUNT 3.59 x10e6/uL (4.3-5.7); RED CELL DISTRIBUTION WIDTH 12.8 % (11.7-14.4)
[2019-11-04 07:26] VITALS: BP 138/67
[2019-11-04 07:35] LABS: ANION GAP 13.6 mmol/L (8-16); CALCIUM 9.3 mg/dL (8.4-10.2); CREATININE, SERUM 1.53 mg/dL (0.72-1.25); POTASSIUM 3.6 mmol/L (3.5-5.1)
[2019-11-04 07:42] LABS: PLATELET COUNT 247 x10e3/uL (140-360)
[2019-11-04] MEDS: DULOXETINE HCL 30 MG DELAYED RELEASE PO SCH (08:06)
[2019-11-04] MEDS: METOPROLOL TARTRATE 25 MG TAB PO SCH ×2 (08:06→16:57)
[2019-11-04] MEDS: OMEGA 3 POLYUNSAT FATTY ACIDS 1000 MG SOFTGEL PO SCH (08:07)
[2019-11-04] MEDS: FOLIC ACID/CYANOCOB/PYRIDOXINE TAB PO SCH (08:07)
[2019-11-04] MEDS: MULTIVITAMINS/MINERALS TAB PO SCH (08:07)
[2019-11-04] MEDS: FENOFIBRATE 145 MG TAB PO SCH (08:08)
[2019-11-04] MEDS: CHOLECALCIFEROL 1,000 UNIT TAB PO SCH (08:08)
[2019-11-04 08:26] VITALS: BP 138/67
[2019-11-04 10:27] LABS: PLATELET ESTIMATE ADEQUATE
[2019-11-04 10:28] LABS: PLATELET MORPHOLOGY COMMENT NORMAL
[2019-11-04 11:29] VITALS: BP 125/70
--- NOTE | 2019-11-04 15:18 | NUR ---
digital production manager visited with pt , offered pastoral support through prayer and blessings . chaplain Valeri
[2019-11-04 15:29] VITALS: BP 130/71
--- NOTE | 2019-11-04 19:21 | NUR ---
Change of shift report given to Sue Regalado RN.
[2019-11-04] MEDS: TRAZODONE HCL 50 MG TAB PO SCH (21:00)
[2019-11-04] MEDS: TAMSULOSIN HCL 0.4 MG CAP PO SCH (21:00)
--- NOTE | 2019-11-04 21:30 | NUR ---
Change of shife report given by AM nurse. Walking rounds completed.
[2019-11-05] VITALS: BP 153/61
[2019-11-05] MEDS: CEFEPIME 2 GM/NS 0.9% 100 ML 100 ML IV SCH ×2 (02:00→15:04)
--- NOTE | 2019-11-05 02:00 | NUR ---
Patient confused and pulling off clothes and tele. Patient states he is getting dressed to go home. oriented patient to tome and place. Patient assessed for BM. Changed and repositioned in bed. Encourged fluids. Bed alarm on. Bed down to lowest level. Continue monitor.
[2019-11-05] MEDS: SODIUM CHLORIDE 0.9% 1000ML 1,000 ML IV SCH ×2 (02:15→12:28)
[2019-11-05 04:00] VITALS: BP 132/63
--- NOTE | 2019-11-05 06:26 | NUR ---
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 8-5 Hba1c/LDL/TG 6.6/61/311; use fibrate; check labs; 8-6 f/u echo and carotid study. cont PT; check labs; Xray of right shoulder due to severe pain LEXX ROMERO MD, PHD
[2019-11-05 07:23] VITALS: BP 149/75
[2019-11-05 08:36] LABS: ANION GAP 10.6 mmol/L (8-16); CALCIUM 9.2 mg/dL (8.4-10.2); CREATININE, SERUM 1.22 mg/dL (0.72-1.25); POTASSIUM 3.6 mmol/L (3.5-5.1)
[2019-11-05] MEDS: MULTIVITAMINS/MINERALS TAB PO SCH (08:45)
[2019-11-05] MEDS: FOLIC ACID/CYANOCOB/PYRIDOXINE TAB PO SCH (08:45)
[2019-11-05] MEDS: DULOXETINE HCL 30 MG DELAYED RELEASE PO SCH (08:45)
[2019-11-05] MEDS: OMEGA 3 POLYUNSAT FATTY ACIDS 1000 MG SOFTGEL PO SCH (08:46)
[2019-11-05] MEDS: CHOLECALCIFEROL 1,000 UNIT TAB PO SCH (08:46)
[2019-11-05] MEDS: FENOFIBRATE 145 MG TAB PO SCH (08:46)
[2019-11-05] MEDS: METOPROLOL TARTRATE 25 MG TAB PO SCH (08:46)
[2019-11-05 08:57] VITALS: BP 149/75
--- NOTE | 2019-11-05 09:38 | Diagnostic Imaging Report ---
EXAM: SHOULDER RIGHT COMPLETE DATE: 11/05/2019 8:46 AM INDICATION: Shoulder pain COMPARISON: None FINDINGS: Internal and external rotation views were obtained of the right shoulder. There is no evidence for acute fracture or dislocation. There is moderate AC joint arthropathy. Degenerative changes noted of the glenohumeral joint. No focal lytic or blastic abnormalities identified. Well-corticated calcifications noted lateral to the humeral head on the external view which may represent calcifications of the rotator cuff. No radiopaque foreign bodies appreciated. IMPRESSION: No acute radiographic abnormality identified within the right shoulder. Degenerative changes as above. Signed by: Dr. Freddy Sandoval MD on 11/05/2019 9:35 AM
[2019-11-05 11:13] VITALS: BP 155/74
[2019-11-05 15:14] VITALS: BP 156/80
[2019-11-05] MEDS ORDERED: FENOFIBRATE145 MG PO (16:21)
[2019-11-05] MEDS ORDERED: METOPROLOL TART50 MG PO (16:21)
[2019-11-05] MEDS ORDERED: ASPIRIN81 MG PO (16:22)
--- NOTE | 2019-11-05 16:25 | NUR ---
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 8-5 Hba1c/LDL/TG 6.6/61/311; use fibrate; check labs; 8-6 f/u echo and carotid study. cont PT; check labs; Xray of right shoulder due to severe pain d/c home stable f/u pcp 2 days d/c>35mins LEXX ROMERO MD, PHD
--- NOTE | 2019-11-05 16:28 | NUR ---
ADDENDUM- D/C summary= Carotid artery disease Principal Dx: FREDRICK in CKD3- hold HCTZ and aceI; give fluids; check renal U/S SYncope-carotid neg; echo neg; rec'd PT UTI- treated with cefepime; wbc better; all cx neg Carotid disease- pt refuses to stay for eval by cardiology; placed on ASA and statin; BP contro. 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 8-5 Hba1c/LDL/TG 6.6/61/311; use fibrate; check labs; 8-6 f/u echo and carotid study. cont PT; check labs; Xray of right shoulder due to severe pain d/c home stable f/u pcp 2 days; Referred to for further eval of carotid ds., d/c>35mins LEXX ROMERO MD, PHD
== END 2019-11-05 17:11 | disposition home or self-care (01) | DRG 683 ==
LOC: ER 11:06 → ERHOLD 14:28 → IMCU 17:09 → MED/SURG 11-03 21:39
PROVIDERS: ADMIT Internal Medicine; ATTEND Internal Medicine
DX: I12.9 Hypertensive chronic kidney disease with stage 1 through stage 4 chronic kidney disease, or unspecified chronic kidney disease (principal); N17.9 Acute kidney failure, unspecified; N39.0 Urinary tract infection, site not specified; N18.3 Chronic kidney disease, stage 3 (moderate); E83.52 Hypercalcemia; Z91.81 History of falling; Z86.73 Personal history of transient ischemic attack (TIA), and cerebral infarction without residual deficits; F32.9 Major depressive disorder, single episode, unspecified; E78.5 Hyperlipidemia, unspecified; Z85.46 Personal history of malignant neoplasm of prostate; R55 Syncope and collapse; E86.0 Dehydration; H91.90 Unspecified hearing loss, unspecified ear; E66.3 Overweight; Z68.29 Body mass index [BMI] 29.0-29.9, adult; M25.511 Pain in right shoulder; I77.89 Other specified disorders of arteries and arterioles; Z11.59 Encounter for screening for other viral diseases
CPT/HCPCS: 36415; 70450; 71046; 80048; 80053; 80061; 81001; 83036; 83605; 83880; 84484; 85025; 85610; 87040; 87086; 93005; 93306; 93880; 96361; 97139; 99284; J7030; J7040; U0002

== ENCOUNTER 2020-01-07 13:06 | Emergency (ER) | payer MEDICARE, OTHER ==
[~2020-01-07] VITALS: Ht 180.3 cm; Wt 95.3 kg
[~2020-01-07 13:06] MED LIST changes: +ASPIRIN81 MG PO; +METOPROLOL TART50 MG PO
--- NOTE | 2020-01-07 13:38 | Emergency Department Note ---
History of Present Illnes History of Present Illness Chief Complaint: General Medicine Complaints History of Present Illness This is a 84 year old male Chief Complaint Comment Patient in from home with complaints of worsening right leg weakness and 3 falls reported in the last week. Patient's spouse reports that when he fell he either "tripped over something" or it is due to his right leg weakness. Neither patient or spouse are sure what he hit when he fell but the patient denies complaints. Patient does have an old appearing bruise to his left forearm but denies pain there as well. Patient's spouse is also concerned that the patient has been sleeping a lot, coughing at night, and some residual confusion since his TIA in May of 2019. Patient is hard of hearing but states he can hear triage nurse well however the patient is reluctant to respond to questions and allows significant other to speak for him. Spouse reports that the patient has been urinating on himself more often that previous but does have a history of urinary incontinence. Patient is a poor historian when asked about the falls and simply states he "doesn't remember". Historian: Patient Arrival Mode: Car Census Enumerator Required: No Onset (how long ago): week(s) Location: Generalized Quality: Weakness Radiation: Reports non-radiation Severity: mild Onset quality: gradual Duration (how long): week(s) Timing of current episode: constant Progression: unchanged Chronicity: new Context: Denies recent illness, Denies recent surgery Relieving factors: none Exacerbating factors: none Associated symptoms: Reports denies other symptoms Treatments prior to arrival: none Past Medical/Family History Physician Review I have reviewed the patient's past medical and family history. Any updates have been documented here. Past Medical History Recent Fever: No Clinical Suspicion of Infectio: No New/Unexplained Change in Ment: No Past Medical History: Hypertension, CVA, Cancer, Depression, Hyperlipedemia, DVT/PE, Osteoarthritis Other Medical History: GOUT PROSTATE CA ESBL URINE Other Surgery: CATARACT VASECTOMY Other Last Tetanus: OOD Review of Systems Review of Systems Constitutional: Reports weakness EENTM: Reports no symptoms Cardiovascular: Reports no symptoms Respiratory: Reports no symptoms Gastrointestinal: Reports no symptoms Genitourinary: Reports no symptoms Musculoskeletal: Reports no symptoms Integumentary: Reports no symptoms Neurological: Reports no symptoms Psychological: Reports no symptoms Endocrine: Reports no symptoms Hematological/Lymphatic: Reports no symptoms Physical Exam Related Data Allergies: Coded Allergies: ibuprofen (Verified Allergy, Mild, THROAT SWELLS, 07/27/16) Triage Vital Signs Vital Signs Date Time Temp Pulse Resp B/P (MAP) Pulse Ox O2 Delivery O2 Flow Rate FiO2 01/07/20 13:08 97.6 53 24 141/60 97 Room Air Vital signs reviewed: Yes Physical Exam CONSTITUTIONAL Constitutional: Present well-developed, Present well-nourished HENT HENT: Present normocephalic, Present atraumatic, Present oropharynx clear/moist, Present nose normal HENT L/R: Present left ext ear normal, Present right ext ear normal EYES Eyes: Reports PERRL, Reports conjunctivae normal NECK Neck: Present ROM normal PULMONARY Pulmonary: Present effort normal, Present breath sounds normal CARDIOVASCULAR Cardiovascular: Present regular rhythm, Present heart sounds normal, Present capillary refill normal, Present bradycardia GASTROINTESTINAL Abdominal: Present soft, Present nontender, Present bowel sounds normal GENITOURINARY Genitourinary: Present exam deferred SKIN Skin: Present warm, Present dry MUSCULOSKELETAL Musculoskeletal: Present ROM normal NEUROLOGICAL Neurological: Present alert, Present oriented x 3, Present no gross motor or sensory deficits PSYCHOLOGICAL Psychological: Present mood/affect normal, Present judgement normal Results Laboratory Lab results reviewed: Yes Imaging Imaging results reviewed: Yes Diagnostics Tests Diagnostic test(s) reviewed: Yes Assessment & Plan Medical Decision Making MDM 84-year-old male presents for multiple complaints including generalized weakness. Initial differential is broad and includes stroke versus infection versus medication adjustments. Examination shows normotensive but with a heart rate of 50. Likely secondary to an increase in his metoprolol. Discussed laboratory workup and imaging with Dr. Warren Oswald and agreed to change his metoprolol back to once daily 25 mg until he can be reevaluated by Dr. Oswald. Do not suspect emergent pathology at this time and patient is appropriate for discharge. Reassessment Reassessment time: 15:08 Reassessment Well apearing, NAD Assessment & Plan Final Impression: (1) Medication side effect (2) Weakness generalized Depart Disposition: HOME, SELF-CARE Last Vital Signs Date Time Temp Pulse Resp B/P (MAP) Pulse Ox O2 Delivery O2 Flow Rate FiO2 01/07/20 13:08 97.6 53 24 141/60 97 Room Air Home Meds Active Scripts Aspirin (ASPIRIN) 81 Mg Tab.chew, 81 MG PO DAILY for 30 Days Prov:LEXX ROMERO MD 11/05/19 Metoprolol Tartrate (METOPROLOL TARTRATE) 50 Mg Tablet, 50 MG PO BID for 30 Days, TAB Prov:LEXX ROMERO MD 11/05/19 Fenofibrate Nanocrystallized (FENOFIBRATE) 145 Mg Tablet, 145 MG PO DAILY for 30 Days Prov:LEXX ROMERO MD 11/05/19 Reported Medications Fenofibrate Nanocrystallized (FENOFIBRATE) 145 Mg Tablet, 160 TAB PO HS 06/12/17 Folic Acid/Vitamin B Comp W-C (SUPER B-COMPLEX FOLIC-VIT C TB) 400 Mcg Tablet, 1 TAB PO DAILY 07/27/16 Cholecalciferol (Vitamin D3) (VITAMIN D) 1,000 Unit Tablet, 4000 UNIT PO DAILY, #30 TAB 07/27/16 [place]-3 Fatty Acids/Fish Oil (OMEGA 3 FISH OIL SOFTGEL) 1 Each Capsule.dr, 1 CAP PO DAILY 07/27/16 Trazodone Hcl (TRAZODONE HCL) 50 Mg Tablet, 50 MG PO HS, #30 TAB 07/27/16 Tamsulosin Hcl (TAMSULOSIN HCL) 0.4 Mg Cap.er.24h, 0.4 MG PO HS 07/27/16 Duloxetine Hcl (CYMBALTA) 30 Mg Capsule.dr, 60 MG PO DAILY, #30 CAP 07/27/16 Metoprolol Tartrate (METOPROLOL TARTRATE) 25 Mg Tablet, 25 MG PO BID, TAB 07/27/16 PADILLA SIGALA MD Jan 07, 2020 13:38
[2020-01-07 14:20] LABS: BASOPHILS # (AUTO) 0.1 (0.0-0.1); BASOPHILS % 0.6 % (0.0-1.0); EOSINOPHILS # (AUTO) 0.2 (0.0-0.4); EOSINOPHILS % 2.3 % (0.0-6.0); HEMATOCRIT 34.4 % (38.2-49.6); HEMOGLOBIN 11.7 g/dL (14.0-18.0); LYMPHOCYTES # (AUTO) 1.9 (1.0-3.2); LYMPHOCYTES % 17.7 % (18.0-39.1); MEAN CORPUSCULAR HEMOGLOBIN 31.2 pg (28-32); MEAN CORPUSCULAR VOLUME 91.7 fL (81-99); MONOCYTES # (AUTO) 0.7 (0.2-0.8); NEUTROPHILS # (AUTO) 7.6 (2.1-6.9); NEUTROPHILS % 71.8 % (38.7-80.0); PLATELET COUNT 311 x10e3/uL (140-360); RED BLOOD COUNT 3.75 x10e6/uL (4.3-5.7); RED CELL DISTRIBUTION WIDTH 13.1 % (11.7-14.4)
[2020-01-07 14:37] LABS: ALBUMIN 3.5 g/dL (3.5-5.0); ALBUMIN/GLOBULIN RATIO 1.1 (0.8-2.0); CALCIUM 9.2 mg/dL (8.4-10.2); CREATININE, SERUM 1.46 mg/dL (0.72-1.25)
--- NOTE | 2020-01-07 14:50 | Diagnostic Imaging Report ---
Examination: CT head without contrast Clinical Indication: Falls. Technique: Transaxial noncontrast images from the skull base through the vertex were obtained. Sagittal and coronal reformatted images were done. Dose modulation, iterative reconstruction, and/or weight based adjustment of the mA/kV was utilized to reduce the radiation dose to as low as reasonably achievable. Comparison: Head CT performed November 02, 2019. Findings: Scalp: No abnormalities. Bones: Intact. No fractures. No blastic or lytic lesions. Brain sulci: Appropriate for patient's age. 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 Extra-axial space: No abnormalities. Parenchyma: Again seen are a few patchy areas of low-attenuation within subcortical and periventricular white matter, nonspecific, but could represent microvascular ischemic disease. No masses, hemorrhage, or acute or chronic cortical based vascular insults. Suprasellar region: No abnormalities. Craniocervical junction: The foramen magnum is patent. No Chiari one malformation. Incidental findings: Atherosclerotic calcification of the cavernous and supraclinoid internal carotid and V4 segments of the bilateral vertebral arteries. Impression: 1. No new or acute intracranial abnormality when compared to prior head CT performed November 02, 2019. 2. Unchanged chronic microvascular ischemic change. 3. Unchanged findings that can be seen in normal pressure hydrocephalus. Signed by: Dr. Fabienne Patel M.D. on 01/07/2020 2:47 PM
--- NOTE | 2020-01-07 15:05 | Diagnostic Imaging Report ---
TECHNIQUE: Frontal view of the chest. INDICATION: ^Y ^CP ^[id number] ^[id number] COMPARISON: 11/02/2019 DISCUSSION: Limited evaluation due to portable technique. Lines and hardware: None Heart and mediastinum: Cardiomediastinal silhouette is enlarged. Central vascular congestion is noted. Lungs and pleura: No focal airspace consolidation. No pleural effusion. No pneumothorax. Similar to prior exam there are multifocal bilateral pleural calcifications and areas of scarring. Soft tissues and bones: No acute abnormality. IMPRESSION: 1. Negative for focal consolidation. 2. Stable multifocal pleural calcifications and areas of interstitial scarring. Findings are probably related to prior asbestos exposure. Signed by: Ad Katz MD on 01/07/2020 3:02 PM
--- OUTSIDE RECORDS SUMMARY | 2020-01-07 15:10 | XMS REPORT | Continuity of Care Document ---
Author Author [facility] t Organization [facility] Address [address] [place] [address] Phone Unavailable Care Team Providers Care Box Toe Cementer Name Role Phone KEENAN VELARDE, MD ALLEN PCP Kasie Simmons Attphys Unavailable LEXX ROMERO Attphys Unavailable Antonette Oswald Attphys KATHE TARIQ Attphys Unavailable Yoana Rivera Attphys Yvrose HAMILTON Attphys Unavailable MANMirna ERICKSON Attphys Unavailable HAMPEL, ADONIS Attphys Unavailable LEXX ROMERO Admphys Unavailable Payers Payer Name Policy Type Policy Number Effective Date Expiration Date Warren Sandoval [facility] [id number] 2019 00:00:00 [facility] Problems Condition Name Condition Details Condition Category Status Onset Date Resolution Date Last Treatment Date Treating Clinician Comments Source R07.89 - OTHER CHEST PAIN R07. 89 - OTHER CHEST PAIN Active 09/04/2019 JAS[place] Diagnosis Active 2019-09-04 00:01:00 2019-09-11 11:37:00 Gladys Dooley M25.511 M25. 511 Active 08/20/2019 [facility] Diagnosis Active 2019-08-20 00:00:00 2019-08-20 13:28:00 Gladys Dooley Escherichia coli (organism) Es cherichia coli (organism) Active 05/29/2019 Problem 09/13/2019 urine (ESBL+), 05/29/2019Problem added by Discern Expert. [facility], JASVIR [place] Problem Active 2019-05-29 00:00:00 2019-09-13 22:44:02 Gladys Dooley Acute kidney injury Problem Active [facility] Urinary tract infection Problem Active [facility] Benign essential hypertension (disorder) Benign essential hypertension (disorder) Active Problem 09/13/2019 [facility] [place]AS[place]IR [place] Problem Active 2019-09-13 22:44:02 Mayank wolfyvrose Tyn[place] Atherosclerosis of coronary artery (disorder) Atherosclerosis of coronary artery (disorder) Active Problem 09/13/2019 [facility] Problem Active 2019-09-13 22:44:02 [facility] History of malignant neoplasm of prostate (situation) History of malignant neoplasm of prostate (situation) Active Problem 09/13/2019 [facility] Problem Active 2019-09-13 22: 44:02 [facility] Hyperlipidemia (disorder) Hype rlipidemia (disorder) Active Problem 09/13/2019 [facility] JASVIR [place] Problem Active 2019-09-13 22:44:02 [facility] 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) Active Problem 09/13/2019 [facility] Problem Active 2019-09-13 22:44:02 [facility] Allergies, Adverse Reactions, Alerts Allergy Name Allergy Type Status Severity Reaction(s) Onset Date Inacti ve Date Treating Clinician Comments Source Ibuprofen Propensity to adverse reactions to drug Active Anaphylaxis 2018-02-11 00:00:00 [place] [facility] Motrin Motrin Active [facility] Family History Family Member Diagnosis Comments Start Date Stop Date Source Natural brother Diabetes [place] [facility] ethodist Natural brother Heart disease [place] Natural mother Uterine cancer [place] Natural sister Diabetes [place] [facility] thodist Social History Social Habit Start Date Stop Date Quantity Comments Source History SDOH Alcohol Std Drinks [facility] History SDOH Alcohol Binge [place] [facility] Sex Assigned At [place] Social History 2019-05-29 11:17:14 2019-05-29 11:17:14 [facility] Tobacco use and exposure 2018-02-13 00:00:00 2018-02-13 00:00:00 Cheli epps used [place] [facility] Alcohol intake 2018-02-13 00:00:00 2018-02-13 00:00:00 Current non-drinker of alcohol (finding) [facility] History SDOH Alcohol Frequency 2018-02-11 00:00:00 2018-02-11 00:00:0 0 1 Jose Elias [place] Smoking Status Start Date Stop Date Source Former smoker 2018-02-13 00:00:00 2018-02-13 00:00:00 Jose Elias [place] Medications Ordered Medication Name Filled Medication Name Start Date Stop Da te Current Medication? Ordering Clinician Indication Dosage Frequency Signature (SIG) Comments Components Source Aspirin Aspirin 2019-11-05 16:22:00 Yes 81 Daily [facility] Fenofibrate Nanocrystallized (Fenofibrate) 145 Mg TABL ET Fenofibrate Nanocrystallized (Fenofibrate) 145 Mg TABLET 2019-11-05 16:21:00 Yes 145 Daily [facility] Metoprolol Tartrate Metoprolol Tartrate 2019-11-05 16:21:00 Yes 50 Twice A Day [facility] aspirin (ECOTRIN) 81 MG enteric coated tablet 2019-06-19 14:01:3 2 Yes 81mg QD Take 81 mg by mouth daily. Hina Diamond allopurinol (ZYLOPRIM) 100 MG tablet 2019-06-19 [...] Cholecalciferol (Vitamin D3) (Vitamin D) 1,000 Unit TA BLET Cholecalciferol (Vitamin D3) (Vitamin D) 1,000 Unit TABLET Yes 4000 Daily [facility] Duloxetine Hcl (Cymbalta) 30 Mg CAPSULE. Duloxetine Hcl (Cymbalta) 30 Mg CAPSULE. Yes 60 Daily [facility] Fenofibrate Nanocrystallized (Fenofibrate) 145 Mg TABL ET Fenofibrate Nanocrystallized (Fenofibrate) 145 Mg TABLET Yes 160 Bedtime [facility] Folic Acid/Vitamin B Comp W-C (Super B-Complex Folic-V it C Tb) 400 Mcg TABLET Folic Acid/Vitamin B Comp W-C (Super B-Complex Folic-Vit C Tb) 400 Mcg TABLET Yes 1 Daily [facility] Metoprolol Tartrate Metoprolol Tartrate Yes 25 Twice A Day [facility] [place]-3 Fatty Acids/Fish Oil ([place] 3 Fish Oil Softgel ) 1 Each CAPSULE.DR Yani Workman Fatty Acids/Fish Oil ([place] 3 Fish Oil Softgel) 1 Each CAPSULE. Yes 1 Daily [facility] Tamsulosin Hcl Tamsulosin Hcl Yes .4 Bedtime [facility] Trazodone Hcl Trazodone Hcl Yes 50 Bedtime [facility] Clonidine Hcl Clonidine Hcl 2019-11-05 00:00:00 No .2 Bedtime [facility] Hydrochlorothiazide Hydrochlorothiazide 2019-11-05 00:00:00 No 1 Twice A Day [facility] Multivitamin W/Iron, Minerals (Spectravite Senior) 1 E ach TABLET Multivitamin W/Iron, Minerals (Spectravite Senior) 1 Each TABLET 2019-11-05 00:0 0:00 No 1 Daily [facility] Quinapril Hcl Quinapril Hcl 2019-11-05 00:00:00 No 20 Twice A Day [facility] Vital Signs Vital Name Observation Time Observation Value Comments Source Body Temperature 2019-11-05 15:14:00 98.6 [degF] [facility] Weight 2019-11-02 17:27:00 210 [lb_av] [facility] BMI (Body Mass Index) 2019-11-02 17:27:00 29.3 kg/m2 [facility] Procedures Procedure Date / Time Performed Performing Clinician [facility] e Computed tomography of brain without radiopaque contrast 2019-10 00:00:00 [facility] X-ray of chest, two views 2019-11-02 00:00:00 [facility] Bilateral vasectomy [facility] Cataract surgery [facility] Plan of Care Planned Activity Planned Date Details Comments Source Instructions Cardiac Disease Risk Factors [facility] Instructions Urinary Tract Infection - Men [facility] Encounters Start Date/Time End Date/Time Encounter Type Admission Type Attendi [facility] Facility Care Department Encounter ID Source 2019-11-02 14:28:00 2019-11-05 17:11:00 Discharged Inpatient 1 LEXX ROMERO [facility] [id number] [facility] 2019-09-11 11:28:00 2019-09-11 23:59:00 Outpatient Destiny Oswald OIP OIP [id number] 2019-09-10 09:49:00 2019-09-10 09:49:00 Registered Clinic 3 KATHE TARIQ [facility] [id number] [facility] 2019-08-20 13:20:00 2019-08-20 23:59:00 Outpatient Yoana Maguire [facility] [id number] 2018-07-24 20:10:00 2018-07-24 23:00:00 Departed Emergency Room 1 KASSIE HAMILTON [facility] [id number] [facility] 2018-03-28 13:54:00 2018-03-28 13:54:00 Registered Clinic [facility] [id number] [facility] 2017-06-12 15:14:00 2017-06-14 17:22:00 Discharged Inpatient (obs) ER CODY PAYTON [facility] [id number] [facility] 2017-03-08 14:20:00 2017-03-08 14:20:00 Registered Clinic USAMA VELIZ MPUSAMAADONIS [facility] [id number] [facility] Results Test Description Test Time Test Comments Results Result Comments Source CHEST SINGLE (PORTABLE) 2020-01-07 15:00:00 [place] [address] Patient Name: DENIZ RESENDIZ MR #: [id number] : 1935 Age/Sex: 84/M Req #: [id number] Adm Physician: Ordered by: Padilla Simmons MD Report #: [id number] Location: ER Room/Bed: Procedure: [id number] DX/CHEST SINGLE (PORTABLE) Exam Date: 01/07/20 Exam Time: 1430 REPORT STATUS: Signed TECHNIQUE: Frontal view of the chest. INDICATION: Y CP [id number] COMPARISON: 11/02/2019 DISCUSSION: Limited evaluation due to portable technique. Lines and hardware: None Heart and mediastinum: Cardiomediastinal silhouette is enlarged. Central vascular congestion is noted. Lungs and pleura: No focal airspace consolidation. No pleural effusion. No pneumothorax. Similar to prior exam there are multifocal bilateral pleural calcifications and areas of scarring. Soft tissues and bones: No acute abnormality. IMPRESSION: 1. Negative for focal consolidation. 2. Stable multifocal pleural calcificati ons and areas of interstitial scarring. Findings are probably related to prior asbestos exposure. Signed by: Rodney Katz MD on 01/07/2020 3:02 PM Dictated By: RODNEY KATZ MD 1502 Transcribed By: POOJA on 01/07/20 1502 COPY TO: PADILLA SIMMONS MD CT BRAIN WO 2020-01-07 14:45:00 [place] [address] Patient Name: DENIZ RESENDIZ MR #: [id number] : 1935 Age/Sex: 84/M Req #: [id number] Adm Physician: Ordered by: Padilla Simmons MD Report #: [id number] Location: ER Room/Bed: Procedure: [id number] CT/CT BRAIN WO Exam Date: 01/07/20 Exam Time: 1425 REPORT STATUS: Signed Examination: CT head without contrast Clinical Indication: Falls. Technique: Transaxial noncontrast images from the skull base through the vertex were obtained. Sagittal and coronal reformatted images were done. Dose modulation, iterative reconstruction, and/or weight based adjustment of the mA/kV was utilized to reduce the radiation dose to as low as reasonably achievable. Comparison: Head CT performed November 02, 2019. Findings: Scalp: No abnormalities. Bones: Intact. No fractures. No blastic or lytic lesions. Brain sulci: Appropriate for patient's age. 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 Extra-axial space: No abnormalities. Parenchyma: Again seen are a few patchy areas of low-attenuation within subcortical and periventricular white matter, nonspecific, but could represent microvascular ischemic disease. No masses, hemorrhage, or acute or chronic cortical based vascular insults. Suprasellar region: No abnormalities. Craniocervical junction: The foramen magnum is patent. No Chiari one malformation. Incidental findings: Atherosclerotic calcification of the cavernous and supraclinoid internal carotid and V4 segments of the bilateral vertebral arteries. Impression: 1. No new or acute intracranial abnormality when compared to prior head CT performed November 02, 2019. 2. Unchanged chronic microvascular ischemic change. 3. Unchanged findings that can be seen in normal pressure hydrocephalus. Signed by: Dr. Michelle Patel M.D. on 01/07/2020 2:47 PM Dictated By: MICHELLE MESA MD 46 Transcribed By: POOJA on 01/07/201446 COPY TO: PADILLA SIMMONS MD SHOULDER RIGHT COMPLETE 2019-11-05 09:30:00 [place] [address] Patient Name: DENIZ RESENDIZ MR #: [id number] : 1935 Age/Sex: 84/M Req #: [id number] Adm Physician: LEXX ROMERO MD Ordered by: LEXX ROMERO MD Report #: [id number] Location: MED/SURG Room/Bed: [facility] Procedure: [id number] DX/SHOULDER RIGHT COMPLETE Exam Date: 11/05/19 Exam Time: 0846 REPORT STATUS: Signed EXAM: SHOULDER RIGHT COMPLETE DATE: 11/05/2019 8:46 AM INDICATION: Shoulder pain COMPARISON: None FINDINGS: Internal and external rotation views were obtained of the right shoulder. There is no evidence for acute fracture or dislocation. There is moderate AC joint arthropathy. Degenerative changes noted of the glenohumeral joint. No focal lytic or blastic abnormalities identified. Well- corticated calcifications noted lateral to the humeral head on the external view which may represent calcifications of the rotator cuff. No radiopaque foreign bodies appreciated. IMPRESSION: No acute radiographic abnormality identified within the right shoulder. Degenerative changes as above. Signed by: Dr. Freddy Sandoval MD on 11/05/2019 9:35 AM Dictated By: FREDDY SANDOVAL MD 4 Transcribed By: POOJA on 11/05/19934 COPY TO: LEXX ROMERO MD Serum or plasma sodium measurement (moles/volume) 2019-11-05 08:01:00 Test Item Sodium Level (test code = 2951-2) 135 136-145 [facility] potassium [facility] (moles/volume)2019-11-05 08:01:00* Test Item Value Reference Range Interpretation Comments Potassium Level (test code = 2823-3) 3.6 3.5-5.1 [facility] chloride measurement (moles/volume)2019-11-05 08:01:00* Test Item Value Reference Range Interpretation Comments Chloride Level (test code = 2075-0) 104 98-107 [facility] carbon dioxide, total measurement (moles/volume)2019-11-05 08:01:00* Test Item Value Reference Range Interpretation Comments Carbon Dioxide Level (test code = 2028-9) 24 22-29 [facility] anion ysw7703-78-10 08:01:00* Test Item Value Reference Range Interpretation Comments Anion Gap (test code = 81826-9) 10.6 8-16 [facility] urea nitrogen measurement (mass/volume)2019-11-05 08:01:00* Test Item Value Reference Range Interpretation Comments Blood Urea Nitrogen (test code = 3094-0) 26 7-26 [facility] creatinine measurement (mass/volume)2019-11-05 08:01:00* Test Item Value Reference Range Interpretation Comments Creatinine (test code = 2160-0) 1.22 0.72-1.25 [facility] urea nitrogen/creatinine mass edtpo4207-93-62 08:01:00* Test Item Value Reference Range Interpretation Comments BUN/Creatinine Ratio (test code = 3097-3) 21 6-25 [facility] glomerular filtration rate (GFR) caypteokfbhyo2238-80-69 08:01:00* Test Item Value Reference Range Interpretation Comments Estimat Glomerular Filtration Rate (test code = 627799706) 56 >60 Ranges were taken from the National Kidney Disease Education Program and the [facility] literature.Reference ranges:60 or greater: Jqxiig06-40 ( for 3 consecutive months): Chronic kidney disease 15 or less: Kidney failureTexas Health Hospital MansfieldGlucose xiiowfitbdp7957-19-96 08:01:00* Test Item Value Reference Range Interpretation Comments Glucose Level (test code = WES5293) 145 74-118 [facility] calcium measurement (mass/volume)2019-11-05 08:01:00* Test Item Value Reference Range Interpretation Comments Calcium Level (test code = 95191-3) 9.2 8.4-10.2 [facility] leukocytes automated count (number/volume)2019-11-04 07:15:00* Test Item Value Reference Range Interpretation Comments White Blood Count (test code = 6690-2) 8.89 4.8-10.8 [facility]field[facility] erythrocytes automated count (number/volume)2019-11-04 07:15:00* Test Item Value Reference Range Interpretation Comments Red Blood Count (test code = 789-8) 3.59 4.3-5.7 [facility]field[facility] hemoglobin measurement (moles/volume)2019-11-04 07:15:00* Test Item Value Reference Range Interpretation Comments Hemoglobin (test code = 51819-0) 11.1 14.0-18.0 [facility]fieldAutomated blood hematocrit (volume fraction)2019-11-04 07:15:00* Test Item Value Reference Range Interpretation Comments Hematocrit (test code = 4544-3) 32.3 38.2-49.6 [facility]fieldAutomated erythrocyte mean corpuscular isewdi8564-61-69 07:15:00* Test Item Value Reference Range Interpretation Comments Mean Corpuscular Volume (test code = 787-2) 90.0 81-99 [facility]fieldAutomated erythrocyte mean corpuscular hemoglobin (mass per erythrocyte)2019-11-04 07:15:00* Test Item Value Reference Range Interpretation Comments Mean Corpuscular Hemoglobin (test code = 785-6) 30.9 28-32 [facility]fieldAutomated erythrocyte mean corpuscular hemoglobin concentration measurement (mass/volume)2019-11-04 07:15:00* Test Item Value Reference Range Interpretation Comments Mean Corpuscular Hemoglobin Concent (test code = 786-4) 34.4 31-35 [facility] MansfieldRDW BkvZb-Eul2928-86-05 07:15:00* Test Item Value Reference Range Interpretation Comments Red Cell Distribution Width (test code = 28701-9) 12.8 11.7 -14.4 [facility]fieldAutomated blood platelet count (count/volume)2019-11-04 07:15:00* Test Item Value Reference Range Interpretation Comments Platelet Count (test code = 777-3) 247 140-360 [facility]fieldAutatrium healthed blood segmented neutrophil count as percentage of total tqteolxrzt7283-48-96 07:15:00* Test Item Value Reference Range Interpretation Comments Neutrophils (%) (Auto) (test code = 52229-8) 64.3 38.7-80.0 [facility]fieldAutomated blood lymphocyte count as percentage ot total vorjldurpr9339-70-14 07:15:00* Test Item Value Reference Range Interpretation Comments Lymphocytes (%) (Auto) (test code = 736-9) 21.6 18.0-39.1 [facility]fieldAutomated blood monocyte count as percentage of total yhlacveqct2989-63-25 07:15:00* Test Item Value Reference Range Interpretation Comments Monocytes (%) (Auto) (test code = 5905-5) 8.4 4.4-11.3 [facility]fieldAutomated blood eosinophil count as percentage of total ojoueukyoe7917-24-32 07:15:00* Test Item Value Reference Range Interpretation Comments Eosinophils (%) (Auto) (test code = 713-8) 3.7 0.0-6.0 [facility]fieldAutomated blood basophil count as percentage of total lhefqsdqbi9101-58-78 07:15:00* Test Item Value Reference Range Interpretation Comments Basophils (%) (Auto) (test code = 706-2) 1.1 0.0-1.0 [facility]fieldFluoroscopic procedure less than one hour lpnvskgp6891-77-51 07:15:00* Test Item Value Reference Range Interpretation Comments IM GRANULOCYTES % (test code = IM GRANULOCYTES %) 0.9 0.0- 1.0 [facility]fieldAutomated blood neutrophil count 2019-11-04 07:15:00* Test Item Value Reference Range Interpretation Comments Neutrophils # (Auto) (test code = 751-8) 5.7 2.1-6.9 [facility]fieldBlood lymphocytes count (number/volume) 2019-11-04 07:15:00* Test Item Value Reference Range Interpretation Comments Lymphocytes # (Auto) (test code = 34612-9) 1.9 1.0-3.2 [facility]fieldBlood monocytes automated count (number/volume)2019-11-04 07:15:00* Test Item Value Reference Range Interpretation Comments Monocytes # (Auto) (test code = 742-7) 0.8 0.2-0.8 [facility]fieldAutomated blood eosinophil count 2019-11-04 07:15:00* Test Item Value Reference Range Interpretation Comments Eosinophils # (Auto) (test code = 711-2) 0.3 0.0-0.4 [facility]fieldAutomated blood basophil count (count/volume)2019-11-04 07:15:00* Test Item Value Reference Range Interpretation Comments Basophils # (Auto) (test code = 704-7) 0.1 0.0-0.1 [facility]fieldFluoroscopic procedure less than one hour hwaqyhto6034-99-23 07:15:00* Test Item Value Reference Range Interpretation Comments Absolute Immature Granulocyte (auto (meghna t code = Absolute Immature Granulocyte (auto) 0.08 0-0.1 [facility]fieldBlood platelets count by estimate (number/volume)2019-11-04 07:15:00* Test Item Value Reference Range Interpretation Comments Platelet Estimate (test code = 28934-5) ADEQUATE [facility] MansfieldPlatelet mwrsqlxqvo6163-25-62 07:15:00* Test Item Value Reference Range Interpretation Comments Platelet Morphology Comment (test code = 71434-6) NORMAL NO EDTA PLT CLUMPS SEENTexas [facility] MansfieldFluoroscopic procedure less than one hour opugbyrc1436-01-93 09:46:00* Test Item Value Reference Range Interpretation Comments Lactic Acid Level (test code = Lactic Acid Level) 3.0 0.5- 2.0 Results repeated and called to CLARKE HARDY RN at 1039 on 11/03/19 by Georgina Fabian. Read back and verified.[facility] Fluoroscopic procedure less than one hour kwjarnss5237-04-91 09:45:00* Test Item Value Reference Range Interpretation Comments Hemoglobin A1c Percent (test code = Hemoglobin A1c Percent) 6.6 4.0-7.0 [facility] triglyceride measurement (mass/volume)2019-11-03 09:45:00* Test Item Value Reference Range Interpretation Comments Triglycerides Level (test code = 2571-8) 311 0-149 [facility] plasma cholesterol measurement (mass/volume)2019-11-03 09:45:00* Test Item Value Reference Range Interpretation Comments Cholesterol Level (test code = 2093-3) 160 0-199 Less than 200 mg/dL Low Skva043 - 239 mg/dL Borderline Xhuc030 m g/dl and greater High Risk [facility] plasma cholesterol in LDL measurement (mass/volume) 2019-11-03 09:45:00* Test Item Value Reference Range Interpretation Comments LDL Cholesterol (test code = 2089-1) 61 60-130 [facility] plasma cholesterol in HDL measurement (mass/volume)2019-11-03 09:45:00* Test Item Value Reference Range Interpretation Comments HDL Cholesterol (test code = 2085-9) 37 40-60 [facility] or plasma total cholesterol/cholesterol in HDL mass acivc8144-95-95 09:45:00* Test Item Value Reference Range Interpretation Comments Cholesterol/HDL Ratio (test code = 9830-1) 4.3 3.9-4.7 [facility]fieldFluoroscopic procedure less than one hour cxapktpb1522-84-57 13:00:00* Test Item Value Reference Range Interpretation Comments Coronavirus (PCR) (test code = Coronavirus (PCR)) NOT DETECTED NOTD ETECTED [employer] Aptima SARS-CoV-2 assay is a nucleic amplification test intended for the qualitative detection of RNA from SARS-CoV-2 from nasopharyngeal (ENVIRONMENTAL SCIENTIST) specimens . It is used under Emergency Use Authorization (EUA) by FDA.A positive result is indicative of the presence of SARS-CoV-2 RNA. Clinical correlation with patient history and other diagnostic information is necessary to determine patient infe ction status.A negative (Not Detected) result does not preclude SARS-CoV-2 infec tion. Clinical Correlation with patient history and other diagnostic information should be used in patient management decisions.Invalid: Unable to generate a va lid result on this specimen. Please submit a new specimen for reprat testing oc clinically indicated.Tesing performed by:[facility] [address] [place] [address] [id number], Kassie Eaton MD, PhD [facility]fieldBlood tmydlkx5172-02-43 12:54:00* Test Item Value Reference Range Interpretation Comments Blood Culture (test code = 16256152) NO GROWTH AFTER 72 HOURS [facility] ODSWV8953-72-78 12:52:00 [facility] [address] [address] Patient Name: DENIZ RESENDIZ MR #: [id number] : 1935 Age/Sex: 84/M Req #: [id number] Adm Physician: Ordered by: Padilla Simmons MD Report #: [id number] Location: ER Room/Bed: Procedure: [id number] DX/ZIA ST 2 VIEWS Exam Date: 11/02/19 Exam Time: 1215 REPORT STATUS: Signed EXAMINATION: C HEST 2 VIEWS INDICATION: Sepsis COMPARISON: None FINDING S: LINES/TUBES:EKG leads overlie the chest. LUNGS:The lungs are modera tely inflated. Mild bibasilar opacities, most likely subsegmental atelectasis. PLEURA:Bilateral geographic calcifications are likely pleural-based. MEDIASTINUM:The cardiomediastinal silhouette appears normal in size and shape. BONES/SOFT TISSUES:No acute osseous injury. ABDOMEN:No free air under t he diaphragm. IMPRESSION: Bilateral geographic calcifications, most l ikely pleural-based, may be related to prior is vessels exposure. Mild bi basilar opacities, most likely subsegmental atelectasis. Signed by: Henry Little MD on 11/02/2019 12:55 PM Dictated By: HENRY LITTLE MD Electronically S igned By: HENRY LITTLE MD on 11/02/19 1255 Transcribed By: POOJA on 11/02/19 12 55 COPY TO: Padilla Simmons MD CT BRAIN [id number] 12:39:00 [place] [address] Patient Name: DENIZ RESENDIZ MR #: [id number] : 1935 Age/Sex: 84/M Req #: [id number] Adm Physician: Ordered by: Padilla Simmons MD Report #: [id number] Location: ER Room/Bed: Procedure: [id number] CT/CT BRAIN WO Exam Date: 11/02/19 Exam Time: 1215 REPORT STATUS: Signed Exam: Head CT wit hout contrast History: Altered mental status Comparison studies: Multiple head CTs are stated to 12/20/2015, most recent 07/24/2018. Technique: Axi al images were obtained from the skull base to the vertex. Coronal and sagitta l images reconstructed from the axial data. Dose modulation, iterative recons truction, and/or weight based adjustment of the mA/kV was utilized to reduce t he radiation dose to as low as reasonably achievable. Radiation dose: Total DLP: 921.4 mGy*cm. Estimated effective dose: DLP x 0.015 Intraveno us contrast: None Findings: Scalp: Nonspecific nodularity in the left occipital scalp is unchanged. Bones: No fractures, blastic or lytic lesions. Brain sulci: Partially effaced at the superior convexity. Remaining sulci ar e mildly or moderately prominent. Ventricles: Moderately dilated ventricles, slightly disproportionate to sulcal prominence which may be due to volume los s or normal pressure hydrocephalus (NPH) in the appropriate clinical setting. No acute hydrocephalus. Extra-axial spaces: No masses, no fluid collection. Parenchyma: Mass, acute hemorrhage or acute or chronic cortical insult s. A few scattered hypodensities in the supratentorial white matter are nonspe cific but are most compatible with chronic microvascular ischemic changes Sellar/suprasellar region: No abnormalities. Craniocervical junction: Patent foramen magnum. No Chiari one malformation. Incidental findings: Bilater al intraocular lens replacements. Atherosclerotic calcifications in the caroti d siphons an in the intradural vertebral arteries. IMPRESSION: No acute intracranial abnormalities. Chronic findings: 1. Moderate generali zed brain volume loss. 2. Mild microvascular ischemic changes. 3. Unchange d nonaggressive ventriculomegaly. Consider NPH in the appropriate clinical set ting. No acute hydrocephalus. Signed by: Dr. Fabrizio Gonsalez M.D. on 12:48 PM Dictated By: FABRIZIO GONSALEZ MD 47 Transcribed By: POOJA on 11/02/19 1248 COPY TO: Padilla Simmons MD Urine color oigvtroaunzpk3871-75-59 12:00:00* Test Item Value Reference Range Interpretation Comments Urine Color (test code = 5778-6) YELLOW YELLOW [facility] wqhtpce1438-75-02 12:00:00* Test Item Value Reference Range Interpretation Comments Urine Clarity (test code = 52504-2) SL CLOUDY CLEAR [facility] Centerpecific gravity of Urine by Test strip 2019-11-02 12:00:00* Test Item Value Reference Range Interpretation Comments Urine Specific Earth (test code = 5811-5) >=1.030 1.010-1.02 5 [facility] pH measurement by automated test mucdb3668-07-30 12:00:00* Test Item Value Reference Range Interpretation Comments Urine pH (test code = 25839-3) 5 5-7 [facility]field[facility] leukocyte esterase detection by lvhfbgcs9045-79-14 12:00:00* Test Item Value Reference Range Interpretation Comments Urine Leukocyte Esterase (test code = 5799-2) NEGATIVE NEGATIVE [facility]fieldUrine nitrite mobpigivw4298-41-50 12:00:00* Test Item Value Reference Range Interpretation Comments Urine Nitrite (test code = 50962-4) NEGATIVE NEGATIVE [facility]fieldU[facility] protein measurement by test strip (mass/volume)2019-11-02 12:00:00* Test Item Value Reference Range Interpretation Comments Urine Protein (test code = 5804-0) 1+ NEGATIVE [facility]fieldU[facility] glucose omcjjsayb8423-94-54 12:00:00* Test Item Value Reference Range Interpretation Comments Urine Glucose (UA) (test code = 2349-9) NEGATIVE NEGATIVE [facility]fieldUrine ketones detection by automated test brlxp1503-65-25 12:00:00* Test Item Value Reference Range Interpretation Comments Urine Ketones (test code = 64086-9) 1+ NEGATIVE [facility]fieldUrine urobilinogen measurement by test strip (mass/volume)2019-11-02 12:00:00* Test Item Value Reference Range Interpretation Comments Urine Urobilinogen (test code = 48718-7) 0.2 0.2-1 [facility]field[facility] total bilirubin measurement (mass/volume)2019-11-02 12:00:00* Test Item Value Reference Range Interpretation Comments Urine Bilirubin (test code = 1978-6) SMALL NEGATIVE [facility]fieldU[facility] erythrocytes zotuykufn0140-41-29 12:00:00* Test Item Value Reference Range Interpretation Comments Urine Blood (test code = 23018-6) LARGE NEGATIVE [facility]fieldAutomated urine sediment leukocyte count by microscopy (number/high power field)2019-11-02 12:00:00* Test Item Value Reference Range Interpretation Comments Urine WBC (test code = 5821-4) 21-50 0-5 [facility]fieldErythrocytes detection in urine sediment by light vmhlzlfkjf0269-44-11 12:00:00* Test Item Value Reference Range Interpretation Comments Urine RBC (test code = 18182-4) 11-20 0-5 [facility]fieldBacteria detection in urine sediment by light apvaoqeonv9051-00-33 12:00:00* Test Item Value Reference Range Interpretation Comments Urine Bacteria (test code = 21934-1) RARE NONE [facility]fieldEpithelial cells detection in urine sediment by light wxdhxqjzut0673-65-97 12:00:00* Test Item Value Reference Range Interpretation Comments Urine Epithelial Cells (test code = 23278-9) FEW NONE [facility]fieldProthrombin time (PT) in platelet poor plasma by coagulation upsqz9043-54-54 11:57:00* Test Item Value Reference Range Interpretation Comments Prothrombin Time (test code = 5902-2) 14.1 11.9-14.5 [facility]fieldINR in Platelet poor plasma by Coagulation ljqns3281-15-04 11:57:00* Test Item Value Reference Range Interpretation Comments Prothromb Time International Ratio (test code = 6301-6) 1.04 Oral Anticoagulant Therapy INR Values:1. Low Intensity Therapy 1.5 - 2.02 . Moderate Intensity Therapy 2.0 - 3.03. High Intensity Therapy(1) 2.5 - 3. 54. High Intensity Therapy(2) 3.0 - 4.05. Panic Value INR > 5.0 [facility] Centererum or plasma total bilirubin measurement (mass/volume)2019-11-02 11:57:00* Test Item Value Reference Range Interpretation Comments Total Bilirubin (test code = 1975-2) 0.5 0.2-1.2 [facility]fieldFluoroscopic procedure less than one hour muonjoju1528-67-76 11:57:00* Test Item Value Reference Range Interpretation Comments Aspartate Amino Transf (AST/SGOT) (test code = Aspartate Amino Transf (AST/SGOT)) 35 5-34 [facility] Centererum or plasma alanine aminotransferase measurement (enzymatic activity/volume)2019-11-02 11:57:00* Test Item Value Reference Range Interpretation Comments Alanine Aminotransferase (ALT/SGPT) (test code = 1742-6) 35 0-55 [facility] Centererum or plasma protein measurement (mass/volume)2019-11-02 11:57:00* Test Item Value Reference Range Interpretation Comments Total Protein (test code = 2885-2) 7.6 6.5-8.1 [facility] Centererum or plasma albumin measurement (mass/volume)2019-11-02 11:57:00* Test Item Value Reference Range Interpretation Comments Albumin (test code = 1751-7) 3.9 3.5-5.0 [facility]fieldPlasma globulin measurement (mass/volume) 2019-11-02 11:57:00* Test Item Value Reference Range Interpretation Comments Globulin (test code = 01143-0) 3.7 2.3-3.5 [facility] Centererum or plasma albumin/globulin mass tlwdz8734-66-14 11:57:00* Test Item Value Reference Range Interpretation Comments Albumin/Globulin Ratio (test code = 1759-0) 1.1 0.8-2.0 [facility] Centererum or plasma alkaline phosphatase measurement (enzymatic activity/volume)2019-11-02 11:57:00* Test Item Value Reference Range Interpretation Comments Alkaline Phosphatase (test code = 6768-6) 38 40-150 [facility]fieldBNP Otb-wVio7726-58-03 11:57:00* Test Item Value Reference Range Interpretation Comments B-Type Natriuretic Peptide (test code = 73545-1) 31.8 0-100 [facility]fieldTroponin I measurement by highly sensitive enzyme nwzuairsroe6557-49-04 11:57:00* Test Item Value Reference Range Interpretation Comments Troponin I (test code = 87765-4) 0.074 0-0.300 [facility] Centertress Test - Treadmill [id number] 18:16:00 [facility] [address] [place] [address] Patient Name : DENIZ RESENDIZ MR #: [id number] : 1935 Age/Sex: 84/M Adm Physician : KATHE TARIQ MD Admit Date : 09/10/19 Location : [place] Room/Bed : REPORT: Myoview Stress Te st DATE OF STUDY: 09/10/2019 10:11:00 Stress Test - Treadmill ONLY PROCEDURE TITLE: Rest stress single isotope SPECT imaging with pharmacologic stress and gated SPECT imaging. INDICATION: Chest pain. PROCEDU RE IN DETAIL: Pharmacologic stress testing was performed with regadenoson under the usual protocol. The baseline heart rate was 64 beats per minute, debi to 71 beats per minute. Baseline blood pressure was 143/65 and decreased to 134 /62. Both of which are normal for regadenoson. Baseline 12-lead electrocardi ogram showed normal sinus rhythm. There were no ST changes suggestive of isch emia or cardiac arrhythmias noted throughout the stress protocol or recovery. FINDINGS: The overall quality of the study is fair. The left ventricula r cavity appears normal in size on both rest and stress images. SPECT images reveal normal myocardial perfusion. Gated SPECT imaging revealed normal myoca rdial thickening and wall motion. Left ventricular ejection fraction was calc ulated to be greater than 70%. IMPRESSION: Normal myocardial perfusion a nd normal left ventricular systolic function. DO VICTORINO Nuñez/GÓMEZ /[id number] Signature Date Dictated By: DOYLE CLAROS DO Transcribed By: GÓMEZ on 09/18/19 < Electronically signed by DOYLE CLAROS DO><<Signature on File>>10/07/19 1155 COPY TO: CT CERVICAL SPINE [id number] 22:13:00 [place] [address] Patient Name: DENIZ RESENDIZ MR #: [id number] : 1935 Age/Sex: 82/M Req #: [id number] Adm Physician: Ordered by: KASSIE HAMILTON MD Report #: [id number] Location: ER Room/Bed: Procedure: [id number] CT/CT CERVICAL SPINE WO Exam Date: 07/24/18 E xam Time: 2120 REPORT STATUS: Yeimi d ADDENDUM #1 Additional history: Report of struc k back of head on cement and patient 'tripped and fell back" per daughter. Signed by: Dr. Marisel Patton M.D. on 07/30/2018 2:04 AM ORIGINAL R EPORT History: Status post fall. Comparison studies: CT cervi abelardo spine from 12/20/2015. Technique: Axial images were obtained through the cervical region.. Coronal and sagittal images reconstructed from the axial data. Dose modulation, iterative reconstruction, and/or weight based adjustme nt of the mA/kV was utilized to reduce the radiation dose to as low as reasona carmelo achievable. Intravenous contrast: None Findings: Fractures: None. Soft tissue injuries: None. Atlantoaxial articulation: Intact. A lignment: Reversal of normal cervical lordosis is either positional or due to muscle spasm. No scoliosis. 1.5 mm grade 1 anterolisthesis at C4-C5 and 2 mm g rade 1 retrolisthesis at C5-C6, is likely degenerative. Cervicomedullary junct ion: No abnormalities. The foramen magnum is patent. Soft tissues: Hypodense n odules in bilateral lobes of thyroid gland, approximately measures 1.6 cm in l marielena axis on the right and 1.5 mm in the left lobe. Vertebrae: No fract ures, infection or neoplasm. Degenerative changes: C2-C3: Mild right for aminal stenosis due to advanced right facet arthrosis. C3-C4: Mild degenerativ e disc disease. Posterior disc osteophyte complex results in mild canal stenos is. Severe right and mild left foraminal stenosis due to facet and uncovertebr al arthrosis. C4-C5: Moderate right and mild left foraminal stenosis due to facet and uncovertebral arthrosis. C5-C6: Severe degenerative disc disease. Posterior disc osteophyte complex results in mild to moderate canal stenosis. Moderate right and severe left foraminal stenosis due to facet and uncoverte bral arthrosis. C6-C7: Moderate degenerative disc disease. Posterior disc os teophyte complex results in mild canal stenosis. Moderate bilateral foraminal stenosis due to facet and uncovertebral arthrosis. IMPRESSION: 1. No acute cervical spine fracture or dislocation. Reversal of normal cervical lord osis is either positional or due to muscle spasm. 2. Ligament, spinal cord and or vascular abnormalities cannot be excluded on the basis of this examina tion. 3. Cervical spondylosis as detailed above. Signed by: Dr. Marisel Patton M.D. on 07/24/2018 10:19 PM Dictated By: MARISEL PATTON MD 0204 Transcribed By: POOJA on 07/24/18 8848 COPY TO: KASSIE HAMILTON MD CT BRAIN [id number] 22:05:00 [place] [address] Patient Name: DENIZ RESENDIZ MR #: [id number] : 1935 Age/Sex: 82/M Req #: [id number] Adm Physician: Ordered by: KASSIE HAMILTON MD Report #: [id number] Location: ER Room/Bed: Procedure: [id number] CT/CT BRAIN WO Exam Date: 07/24/18 Exam Time: 2120 REPORT STATUS: Signed * ADDENDUM #1 Additional history: Report of struck back of head on cement and patient 'tripped and fell back" per daughter. Signed by: Dr. Marisel Patton M.D. on 07/30/2018 2:03 AM ORIGINAL REPORT EXAMINATION: Head CT without contrast. HISTORY:Status post fall. COMPARISON:CT brain from 07/27/2016. TECHNIQUE: Multidetector axi al images were obtained from the foramen magnum to the vertex without contrast . The images were reconstructed using brain and bone algorithms. Thin section brain images were reformatted into coronal and sagittal planes. Dose modula tion, iterative reconstruction, and/or weight based adjustment of the mA/kV wa s utilized to reduce the radiation dose to as low as reasonably achievable. Intravenous contrast: None IMAGE QUALITY: Acceptable. FINDINGS: Skull/scalp: Unchanged nonspecific subcutaneous soft tissue thickening in left occipital scalp may represent scar. Parenchyma: No unchanged nonspec ific bilateral frontoparietal patchy white matter hypodensity are likely relat ed to small vessel ischemic changes. No acute hemorrhage, mass or acute major vascular territorial infarct. Arteries: No density suggestive of thrombosi s. Atherosclerotic calcification in bilateral carotid siphon. Dural s inuses: No abnormal density suggestive of thrombosis. Ventricles: Unchang ed marked ventriculomegaly slightly disproportionate to the amount of cerebral volume loss. Extra-axial spaces: No abnormal density. Brain volum e: Moderate generalized volume loss, with predominant involvement of bilateral temporal lobes with markedly dilated bilateral sylvian fissures remains uncha nged. Craniocervical junction: No mass, Chiari malformation, or basilar invagination. Sella: No mass. Paranasal/mastoid sinuses: Imaged por tions unremarkable. IMPRESSION: No acute intracranial abnormality. N o change since CT brain from 07/27/2016. Chronic findings: 1. Mild suprate ntorial white matter microvascular ischemic changes. 2. Moderate generalized c erebral volume loss, with mild predominant involvement of bilateral temporal l obes. 3. Marked ventriculomegaly slightly disproportionate to the amount of ce rebral volume loss may represent normal pressure hydrocephalus or due to centr al cerebral volume loss in appropriate clinical setting. Signed by: Dr. Warren Patton M.D. on 07/24/2018 10:13 PM Dictated By: MARISEL Mixon 0203 Transcribed By : POOAJ on 07/24/18 2213 COPY TO: KASSIE HAMILTON MD Bedside Gjghujg0080-09-05 16:38:00* Test Item Value Reference Range Interpretation Comments Bedside Glucose (test code = 28206-5) 119 70-120 Meter ID: [id number] Midlothian Medical Centerodium Level 2017-06-14 07:09:00* Test Item Value Reference Range Interpretation Comments Sodium Level (test code = 2951-2) 135 136-145 L [facility]fieldPotassium Icccs2010-81-01 07:09:00* Test Item Value Reference Range Interpretation Comments Potassium Level (test code = 2823-3) 3.3 3.5-5.1 L [facility]fieldChloride Ktvmw2292-56-50 07:09:00* Test Item Value Reference Range Interpretation Comments Chloride Level (test code = 2075-0) 104 98-107 [facility] MansfieldCarbon Dioxide Sgoms9888-28-08 07:09:00* Test Item Value Reference Range Interpretation Comments Carbon Dioxide Level (test code = 2028-9) 23 22-29 [facility] MansfieldAnion Xqz2960-16-48 07:09:00* Test Item Value Reference Range Interpretation Comments Anion Gap (test code = 73794-1) 11.3 8-16 [facility]fieldBlood Urea Uhqzlrha3256-24-16 07:09:00* Test Item Value Reference Range Interpretation Comments Blood Urea Nitrogen (test code = 3094-0) 20 7-26 [facility] MansfieldCreatinine2018-03-16 07:09:00* Test Item Value Reference Range Interpretation Comments Creatinine (test code = 2160-0) 1.38 0.72-1.25 H [facility] MansfieldBUN/Creatinine Aoglq6031-90-58 07:09:00* Test Item Value Reference Range Interpretation Comments BUN/Creatinine Ratio (test code = 3097-3) 14 6-25 [facility] MansfieldEstimat Glomerular Filtration Rate 2017-06-14 07:09:00* Test Item Value Reference Range Interpretation Comments Estimat Glomerular Filtration Rate (test code = 09062-3) 49 >60 L Ranges were taken from the National Kidney Disease Education Program and the [facility] Kidney Foundation literature.Reference ranges:60 or greater: Dagiah75-21 ( for 3 consecutive months): Chronic kidney disease 15 or less: Kidney failureTexas Health Hospital MansfieldGlucose Tqext9197-68-59 07:09:00* Test Item Value Reference Range Interpretation Comments Glucose Level (test code = XWV7079) 117 74-118 [facility]fieldCalcium Fvcua3413-75-65 07:09:00* Test Item Value Reference Range Interpretation Comments Calcium Level (test code = 50493-5) 8.1 8.4-10.2 L [facility] MansfieldCreatine Oaqnsv3266-07-45 06:59:00* Test Item Value Reference Range Interpretation Comments Creatine Kinase (test code = 2157-6) 98 30-200 [facility] MansfieldCreatine Kinase TS8110-39-29 06:55:00* Test Item Value Reference Range Interpretation Comments Creatine Kinase MB (test code = 24026-5) 1.70 0-5.0 [facility] MansfieldTroponin [id number] 06:55:00* Test Item Value Reference Range Interpretation Comments Troponin I (test code = IDO7206) 0.023 0-0.300 [facility] MansfieldWhite Blood Fdslx6480-90-22 06:32:00* Test Item Value Reference Range Interpretation Comments White Blood Count (test code = 6690-2) 9.68 4.8-10.8 [facility] MansfieldRed Blood Jcipk9427-74-56 06:32:00* Test Item Value Reference Range Interpretation Comments Red Blood Count (test code = 789-8) 4.57 4.3-5.7 [facility] MansfieldHemoglobin2018-03-15 06:32:00* Test Item Value Reference Range Interpretation Comments Hemoglobin (test code = 44824-7) 14.3 14.0-18.0 [facility] MansfieldHematocrit2018-03-15 06:32:00* Test Item Value Reference Range Interpretation Comments Hematocrit (test code = 4544-3) 41.9 38.2-49.6 [facility] MansfieldMean Corpuscular Vfxpdm8331-41-75 06:32:00* Test Item Value Reference Range Interpretation Comments Mean Corpuscular Volume (test code = 787-2) 91.7 81-99 [facility] MansfieldMean Corpuscular Jrlludvfrd4036-63-05 06:32:00* Test Item Value Reference Range Interpretation Comments Mean Corpuscular Hemoglobin (test code = 785-6) 31.3 28-32 [facility] MansfieldMean Corpuscular Hemoglobin Concent 2017-06-13 06:32:00* Test Item Value Reference Range Interpretation Comments Mean Corpuscular Hemoglobin Concent (test code = 786-4) 34.1 31-35 [facility] MansfieldRed Cell Distribution Gudkc2877-02-60 06:32:00* Test Item Value Reference Range Interpretation Comments Red Cell Distribution Width (test code = 98129-9) 13.5 11.7 -14.4 [facility] MansfieldPlatelet Uopil9450-16-89 06:32:00* Test Item Value Reference Range Interpretation Comments Platelet Count (test code = 777-3) 276 140-360 [facility] MansfieldNeutrophils (%) (Auto)2017-06-13 06:32:00 * Test Item Value Reference Range Interpretation Comments Neutrophils (%) (Auto) (test code = 83568-0) 65.3 38.7-80.0 [facility] MansfieldLymphocytes (%) (Auto)2017-06-13 06:32:00 * Test Item Value Reference Range Interpretation Comments Lymphocytes (%) (Auto) (test code = 736-9) 22.1 18.0-39.1 [facility] MansfieldMonocytes (%) (Auto)2017-06-13 06:32:00* Test Item Value Reference Range Interpretation Comments Monocytes (%) (Auto) (test code = 5905-5) 8.5 4.4-11.3 [facility]fieldEosinophils (%) (Auto)2017-06-13 06:32:00 * Test Item Value Reference Range Interpretation Comments Eosinophils (%) (Auto) (test code = 713-8) 1.5 0.0-6.0 [facility]fieldBasophils (%) (Auto)2017-06-13 06:32:00* Test Item Value Reference Range Interpretation Comments Basophils (%) (Auto) (test code = 706-2) 0.6 0.0-1.0 [facility] MansfieldIM GRANULOCYTES %2017-06-13 06:32:00* Test Item Value Reference Range Interpretation Comments IM GRANULOCYTES % (test code = IM GRANULOCYTES %) 2.0 0.0- 1.0 H [facility] MansfieldNeutrophils # (Auto)2017-06-13 06:32:00* Test Item Value Reference Range Interpretation Comments Neutrophils # (Auto) (test code = 751-8) 6.3 2.1-6.9 [facility] MansfieldLymphocytes # (Auto)2017-06-13 06:32:00* Test Item Value Reference Range Interpretation Comments Lymphocytes # (Auto) (test code = 77366-1) 2.1 1.0-3.2 [facility]fieldMonocytes # (Auto)2017-06-13 06:32:00* Test Item Value Reference Range Interpretation Comments Monocytes # (Auto) (test code = 742-7) 0.8 0.2-0.8 [facility]fieldEosinophils # (Auto)2017-06-13 06:32:00* Test Item Value Reference Range Interpretation Comments Eosinophils # (Auto) (test code = 711-2) 0.2 0.0-0.4 [facility]fieldBasophils # (Auto)2017-06-13 06:32:00* Test Item Value Reference Range Interpretation Comments Basophils # (Auto) (test code = 704-7) 0.1 0.0-0.1 [facility] MansfieldAbsolute Immature Granulocyte (auto 2017-06-13 06:32:00* Test Item Value Reference Range Interpretation Comments Absolute Immature Granulocyte (auto (meghna t code = Absolute Immature Granulocyte (auto) 0.19 0-0.1 H [facility] MansfieldUrine [id number] 17:28:00* Test Item Value Reference Range Interpretation Comments Urine WBC (test code = 5821-4) 0-5 0-5 [facility] MansfieldUrine [id number] 17:28:00* Test Item Value Reference Range Interpretation Comments Urine RBC (test code = 37434-9) 0-5 0-5 [facility] MansfieldUrine Cvczthmf4677-77-79 17:28:00* Test Item Value Reference Range Interpretation Comments Urine Bacteria (test code = 46603-7) FEW NONE [facility] MansfieldUrine Epithelial Ijwlt9729-60-84 17:28:00 * Test Item Value Reference Range Interpretation Comments Urine Epithelial Cells (test code = 76409-3) FEW NONE [facility] [facility] Zjnzk4874-10-42 17:28:00* Test Item Value Reference Range Interpretation Comments Urine Hyaline Casts (test code = 05923-4) 6-10 0-1 [facility] Cfuin0845-71-13 17:11:00* Test Item Value Reference Range Interpretation Comments Urine Color (test code = 5778-6) YELLOW YELLOW [facility] Dlognfo6619-67-90 17:11:00* Test Item Value Reference Range Interpretation Comments Urine Clarity (test code = 74386-8) CLEAR CLEAR [facility] Specific Zvmdlta3466-09-15 17:11:00 * Test Item Value Reference Range Interpretation Comments Urine Specific Earth (test code = 5811-5) 1.025 1.010-1.02 5 [facility] xP7628-81-43 17:11:00* Test Item Value Reference Range Interpretation Comments Urine pH (test code = 53451-3) 5 5-7 [facility] Leukocyte Fnjybkpa6706-52-86 17:11:00* Test Item Value Reference Range Interpretation Comments Urine Leukocyte Esterase (test code = 5799-2) NEGATIVE NEGATIVE [facility] Wryjtwj8173-75-10 17:11:00* Test Item Value Reference Range Interpretation Comments Urine Nitrite (test code = 82800-5) NEGATIVE NEGATIVE [facility] Dnxpfkz7208-82-37 17:11:00* Test Item Value Reference Range Interpretation Comments Urine Protein (test code = 5804-0) NEGATIVE NEGATIVE [facility] Glucose (UA)2017-06-12 17:11:00* Test Item Value Reference Range Interpretation Comments Urine Glucose (UA) (test code = 2349-9) NEGATIVE NEGATIVE [facility] Kdiqyck1339-89-14 17:11:00* Test Item Value Reference Range Interpretation Comments Urine Ketones (test code = 12016-0) NEGATIVE NEGATIVE [facility] Laexkxahnxvo6090-21-61 17:11:00* Test Item Value Reference Range Interpretation Comments Urine Urobilinogen (test code = 72623-0) 1 0.2-1 [facility] Qjbcxhfky0220-17-70 17:11:00* Test Item Value Reference Range Interpretation Comments Urine Bilirubin (test code = 1978-6) 1+ NEGATIVE H Confirmatory test currently unavailable. False positive results may occur.[facility] Qydnv7274-61-27 17:11:00* Test Item Value Reference Range Interpretation Comments Urine Blood (test code = 09507-6) NEGATIVE NEGATIVE [facility] Fpehvwonp7964-94-98 12:34:00* Test Item Value Reference Range Interpretation Comments Total Bilirubin (test code = 1975-2) 1.3 0.2-1.2 H [facility] Amino Transf (AST/SGOT) 2017-06-12 12:34:00* Test Item Value Reference Range Interpretation Comments Aspartate Amino Transf (AST/SGOT) (test code = Aspartate Amino Transf (AST/SGOT)) 18 5-34 [facility] Aminotransferase (ALT/SGPT) 2017-06-12 12:34:00* Test Item Value Reference Range Interpretation Comments Alanine Aminotransferase (ALT/SGPT) (test code = 1742-6) 15 0-55 [facility] Dyvfylv7250-68-61 12:34:00* Test Item Value Reference Range Interpretation Comments Total Protein (test code = 2885-2) 7.5 6.5-8.1 [facility]2018-03-14 12:34:00* Test Item Value Reference Range Interpretation Comments Albumin (test code = 1751-7) 3.9 3.5-5.0 [facility]2018-03-14 12:34:00* Test Item Value Reference Range Interpretation Comments Globulin (test code = 31453-4) 3.6 2.3-3.5 H [facility]Globulin Cqvmv2102-10-91 12:34:00 * Test Item Value Reference Range Interpretation Comments Albumin/Globulin Ratio (test code = 1759-0) 1.1 0.8-2.0 [facility] Htogzhlubbg3383-89-54 12:34:00* Test Item Value Reference Range Interpretation Comments Alkaline Phosphatase (test code = 6768-6) 32 40-150 L [facility]2018-03-14 12:34:00* Test Item Value Reference Range Interpretation Comments Lipase (test code = 3040-3) 39 8-78 [facility] [address] [address] Patient Name: DENIZ RESENDIZ MR #: [id number] : 1935 Age/Sex: 81/M Req #: [id number] Adm Physician: Ordered by: CODY PAYTON MD Report #: [id number] Location: [facility] jimenez/Bed: Procedure: [id number] CT/CT ABDOMEN/PELVIS WO Exam Date: 06/12/17 Exam [...] obtained. COMPARISON: None. INDICATIONS: VOMITING, ABD PAIN FINDINGS : ABSENCE OF INTRAVENOUS CONTRAST DECREASES SENSITIVITY FOR [...] CODY PAYTON MD US RENAL RETROPERITONEAL COMP [address] [address] Patient Name: DENIZ RESENDIZ MR #: [id number] : 1935 Age/Sex: 81/M Req #: [id number] Adm Physician: Ordered by: ADONIS MURCIA MD Report #: [id number] Location: US Room/Bed: Procedure: [id number] US/US RENAL RETROPERITONEAL CO MP Exam Date: [...] at 15:43 Dictated By: YG BROWNLEE MD 1543 Transcribed By: RAÚL on 03/08/17 1543 COPY TO: ADONIS BAUER MD
--- OUTSIDE RECORDS SUMMARY | 2020-01-07 15:10 | XMS REPORT | Continuity of Care Document ---
Author Author [employer] Address Unknown Phone Unavailable Care Team Providers Care Item Repair Manager Name Role Phone [facility] [employer] Unavailable Un available Problems Problem Status Onset Date Classification Date Reported Comments Source R07.89 - OTHER CHEST PAIN [facility]2019 [facility] Escherichia coli (organism) Ac tive 05/29/2019 Problem 09/13/2019 urine (ESBL+), 05/29/2019 Problem added by Discern Expert. [facility] Benign essential hypertension (disorder) Active Problem 09/13/2019 [facility] OPI D [place] Atherosclerosis of coronary artery (disorder) Active Problem 09/13/2019 [facility] OPI D [place] History of malignant neoplasm of prostate (situation) [facility] [place] Hyperlipidemia (disorder) Acti ve Problem [facility] OPID [place] d Peripheral nerve disease (disorder) [facility] [facility] Medications No Data Provided for This Section Allergies, Adverse Reactions, Alerts Substance Category Reaction Severity Reaction type Status Date Reported Comments Source Motrin Assertion Drug allergy Active [facility] Immunizations No Data Provided for This [...] present. Yung Monet MD On 09/11/2019 13:55:02; [id number] 09/11/2019 [facility] [place] Humerus 2 views DX PROCEDURE I NFORMATION: [...] Carrero MD On 08/20/2019 15:24:54; [id number] 08/20/2019 [facility] Shoulder series DX PROCEDURE I NFORMATION: Exam: [...] findings. Lloyd Best DO On 08/20/2019 17:39:16; [id number] 08/20/2019 [facility] Consultation Notes No Data Provided for This Section Discharge Summaries No Data Provided for This Section History and Physicals No Data Provided for This Section Vital Signs No Data Provided for This Section Encounters Location Location Details Encounter Type Encounter Number Reason For Visit Attending Provider ADM Date DC Date Status Source [facility] Outpatient [id number] Yoana Rivera 08/1908/21/2019 [facility] [place] [facility] [id number] 00 [place] Oswald 09/11/2019 09/12/2019 [facility] Procedures Procedure Code Date Perfomer Comments Source Bilateral vasectomy [id number] [facility] Cataract surgery [id number] [facility] Assessment and Plan No Data Provided for [...] Cessation Counseling No entered on: 05/29/19 05/29/2019 [facility] Social History TypeResponse Alcohol Never Smoking Status Former smoker; Type: Cigarettes; Previous treatment: None; Ready to change: No; Concerns about tobacco use in household: No; Exposure to Tobacco Smoke None; Cigarette Smoking Last 365 Days No; Reg Smoking Cessation Counseling No entered on: 05/29/19 05/29/2019 [facility] Family History No Data Provided for This Section Advance Directives No Data Provided for This Section Functional Status No Data Provided for This Section
--- OUTSIDE RECORDS SUMMARY | 2020-01-07 15:10 | XMS REPORT | Clinical Summary ---
Author Author [employer] Address Unknown Phone Unavailable Care Team Providers Care Product Support Analyst Name Role Phone Asked, No Pcp PCP [...] daily. Active Problems No known active problems Surgical History Surgery Date Site/Laterality Comments VASECTOMY SPINE SURGERY EGD AND COLONOSCOPY COLONOSCOPY 02/12/2018 N/A Procedure: COLO NOSCOPY; Surgeon: Bryant Morales MD; Location: [facility]; Service: Gastroenterology; Laterality: N/A; Medical History Medical History Date Comments Colon polyps Diverticulitis of colon Fatty liver High triglycerides Hypertension Sleep apnea Kidney stones Frequent UTI Cancer (HCC) skin and prostate cancer Asbestosis (HCC) Diverticulitis Fatty liver Kidney stones Neuropathy Family History Medical History Relation Name Comments [...] Assigned at Date Recorded Not on file Last Filed Vital Signs Not on file Plan of Treatment Not on file Results Not on fileafter 01/06/2019 Insurance Type Payer Benefit Subscriber ID Effective Phone Address Plan / Dates Group HMO [employer] C[employer] [id number] 2017-P [facility]
== END 2020-01-07 15:43 | disposition home or self-care (01) ==
LOC: ER 13:35
DX: R53.1 Weakness (principal); T44.7X5A Adverse effect of beta-adrenoreceptor antagonists, initial encounter; I10 Essential (primary) hypertension; E78.5 Hyperlipidemia, unspecified; M10.9 Gout, unspecified; F32.9 Major depressive disorder, single episode, unspecified; Z86.718 Personal history of other venous thrombosis and embolism; Z85.46 Personal history of malignant neoplasm of prostate
CPT/HCPCS: 36415; 70450; 71045; 80053; 83690; 84484; 85025; 93005; 99284